=== PATIENT | male | born 1970 | race Caucasian/White ===

== ENCOUNTER 2016-12-29 11:33 | Inpatient (IN) | payer MEDICAID ==
[~2016-12-29] VITALS: Ht 165.1 cm; Wt 82.1 kg
[~2016-12-29 11:33] MED LIST: BACTRIM DS 800/1 TAB PO; CATAPRES0.1 MG PO; CLEOCIN HCL300 MG PO; KEFLEX250 MG/5 M PO; METFORMIN500 MG PO; ZESTRIL30 MG PO
[2016-12-29 12:07] VITALS: BP 135/76
--- NOTE | 2016-12-29 12:15 | NUR ---
46M BIB FAMILY C/O RT ARM PAIN, ACHING, NON-RADIATING, 7/10 X LAST NIGHT; PT STATES HE WAS DRINKING LAST NIGHT, FELL, LANDED ON RIGHT ARM; DENIES LOC AT THIS TIME; HX DM, NON-COMPLIANT W/MEDS. HX: ETOH; PT A&OX4, MUTLIPLE SCABS NOTED TO FACE/RT ARM; BRUISE NOTED TO LEFT ARM; BL RADIAL PULSES PALPABLE, BL UE'S CAP REFILL < 3 SECONDS; NO LOSS OF SENSATION TO BL ARMS AT THIS TIME; PT STATES HAD 5 EPISODES OF DIARRHEA TODAY, BUT DENIES N/V AT THIS TIME; ABDOMEN SOFT, NON-TENDER, ACTIVE BOWEL SOUNDS X 4 QUADRANTS; PT RESTING IN BED W/ HOB ELEVATED AND IN LOWEST POSITION; POSITIONED FOR COMFORT; ER MD MADE AWARE OF STATUS. WILL CONTINUE TO MONITOR.
--- NOTE | 2016-12-29 12:15 | NUR ---
Pt taken to bed 5.
--- NOTE | 2016-12-29 12:16 | NUR ---
Patient being evaluated by physician at bedside.
[2016-12-29] MEDS ORDERED: NACL 0.9% 1,000 ML IV ONE (12:17)
[2016-12-29] MEDS ORDERED: MULTIVITAMIN-12 10 ML, THIAMINE 100 MG, MAGNESIUM SULFATE 50% 2,000 MG, FOLIC ACID 5 MG... IV ONE (12:17)
--- NOTE | 2016-12-29 13:10 | NUR ---
Patient appears to be resting comfortably in bed. Vital Signs within normal limits. Respirations even and unlabored. FAMILY AT BEDSIDE; WILL CONTINUE TO MONITOR.
--- NOTE | 2016-12-29 15:00 | NUR ---
Patient appears to be resting comfortably in bed. Vital Signs within normal limits. Respirations even and unlabored. NO SIGNS OF ACUTE DISTRESS AT THIS TIME; WILL CONTINUE TO MONITOR.
--- NOTE | 2016-12-29 16:01 | NUR ---
Dr. Powers at bedside. Accepting admission.
[2016-12-29] MEDS ORDERED: KETOROLAC 30 MG/ML VIAL IVP PRN (16:15)
[2016-12-29] MEDS ORDERED: MORPHINE SULFATE 2 MG/ML SYR IVP PRN (16:15)
[2016-12-29] MEDS ORDERED: PANTOPRAZOLE 40 MG TABEC PO ONE (16:15)
[2016-12-29] MEDS ORDERED: ACETAMINOPHEN 325 MG SUPP RC PRN (16:15)
[2016-12-29] MEDS ORDERED: DOCUSATE SODIUM 100 MG GELCAP PO PRN (16:15)
[2016-12-29] MEDS: FOLIC ACID 1 MG TAB PO SCH (16:15)
[2016-12-29] MEDS ORDERED: LORazepam 2 MG/ML VIAL IVP PRN (16:15)
[2016-12-29] MEDS: THIAMINE 200 MG/2 ML VIAL IM SCH (16:15)
[2016-12-29] MEDS ORDERED: ONDANSETRON 4 MG/2 ML VIAL IVP PRN (16:15)
--- NOTE | 2016-12-29 16:31 | NUR ---
CALLED [facility] TO GIVE REPORT; RN STATED WILL CALL BACK.
--- NOTE | 2016-12-29 16:41 | NUR ---
Lisandro vallejo in [facility] - 12/29/16 at 1643 by ADINA REPORT GIVEN TO LEANDRO CALABRESE; PT TO HAVE US AT BEDSIDE AT THIS TIME; WILL BRING PT TO FLOOR AFTER US RN ASSIGNED TO PT IS DISCHARGING PT.
--- NOTE | 2016-12-29 16:41 | NUR ---
REPORT GIVEN TO LEANDRO RN; PT TO HAVE US AT BEDSIDE AT THIS TIME; WILL BRING PT TO FLOOR AFTER US RN ASSIGNED TO PT IS DISCHARGING A PT.
--- NOTE | 2016-12-29 16:47 | NUR ---
US AT BEDSIDE; WILL BRING PT TO FLOOR UPON COMPLETION OF US; PT DENIES ACUTE DISTRESS AT THIS TIME; WILL CONTINUE TO FOLLOW.
--- NOTE | 2016-12-29 17:11 | NUR ---
Patient will be admitted to care of DR. PELAYO. Admited to TELEMETRY. Will go to room 121A. Belongings list completed. Report to BHARATI REEVES.
--- NOTE | 2016-12-29 17:15 | NUR ---
RECEIVED PT FROM ER AWAKE, ALERT ORIENTEDX4. WITH DAUGHTER JOSÉ ANTONIO. NO SOB NOTED. DENIES ANY PAIN OR DISCOMFORT AT THIS TIME. PT AMBULATORY BUT UNSTABLE. DENIES ANY DISCOMFORT WITH BLADDER OR BOWEL ELIMINATION. PT HAS RIGHT SCAB ON ELBOW. AND PURPLE DISCOLORATION OF RIGHT ARM. SAFETY PRECAUTION IN PLACE. CALL LIGHT WITHIN REACH.
--- NOTE | 2016-12-29 17:29 | NUR ---
DR. BECERRA MADE AWARE OF LAB VALUE OF PT. K 3.1, NA 123.
[2016-12-29] MEDS: BLOOD GLUCOSE MONITORING 1 DEV DEV FS SCH ×2 (17:30→20:37)
[2016-12-29] MEDS: NACL 0.9% 1,000 ML IV SCH ×2 (17:58→22:31)
[2016-12-29] MEDS: LORazepam 1 MG TAB PO SCH ×2 (18:00→23:49)
--- NOTE | 2016-12-29 18:00 | NUR ---
DR. BECERRA CAME TO SEE PT WITH NEW ORDERS MADE AND CARRIED OUT. PT ON NPO EXCEPT MEDS PER MD ORDER. AWARE THAT PT HAD HIS DINNER.
[2016-12-29] MEDS: INSULIN LISPRO SLIDING SCALE 100 UNITS/ML VIAL SUBQ PRN (18:02)
--- NOTE | 2016-12-29 18:10 | NUR ---
Note yoni in EDM - 12/29/16 at 1914 by MEDCARLOS Patient appears to be resting comfortably in bed. Vital Signs within normal limits. Respirations even and unlabored. NO ACUTE DISTRESS NOTED AT THIS TIME; WILL CONTINUE TO MONITOR.
[2016-12-29 18:42] VITALS: BP 137/77
--- NOTE | 2016-12-29 19:08 | NUR ---
Lisandro vallejo in EDM - 12/29/16 at 1914 by MEDCARLOS IV removed, catheter intact and site benign. Applied folded 4x4 gauze and tape to stop bleeding. PT TOLERATED PROCEDURE WELL.
--- NOTE | 2016-12-29 19:40 | NUR ---
ENDORSED TO NEXT SHIFT FOR CONTINUITY OF CARE. PT ALERT, AWAKE ORIENTED X4. DENIES ANY PAIN OR DISCOMFORT AT THIS TIME. NO SOB. MADE AWARE OF NPO ORDER. PT ON STABLE CONDITION. KEPT CLEAN DRY AND COMFORTABLE, NEEDS ATTENDED.
--- NOTE | 2016-12-29 19:41 | NUR ---
RECEIVED REPORT FROM DAY RN FOR CONTINUITY OF CARE. PATIENT IS A&OX4, DISCUSSED PLAN OF CARE WITH PATIENT AND DAUGHTER AT BESIDE, VERBALIZED UNDERSTANDING. SHIFT ASSESSMENT DONE, VS TAKEN, STABLE. NO S/S OF RESPIRATORY DISTRESS NOTED ON ROOM AIR. PATIENT DENIES PAIN AT THIS TIME. IV TO LT AC 20 GAUGE PATENT AND INFUSING FLUIDS WELL. PT HAS SCABS AND SWELLING NOTED TO RT ARM FROM S/P FALL. SAFETY/ FALL PRECAUTIONS ENFORCED. CALL LIGHT WITHIN REACH. WILL CONTINUE TO MONITOR.
[2016-12-29 20:00] VITALS: BP 138/76
[2016-12-29] MEDS: cloNIDine 0.1 MG TAB PO SCH (20:38)
[2016-12-29] MEDS ORDERED: POTASSIUM CHLORIDE 10 MEQ TABER PO SCH (21:00)
--- NOTE | 2016-12-29 21:00 | NUR ---
SPOKE TO DR. PELAYO REGARDING K LEVEL, AND DIET, WILL FOLLOW OUT ORDERS GIVEN.
--- NOTE | 2016-12-29 21:31 | NUR ---
DUE MEDICATIONS ADMINISTERED, TOLERATED WELL. PATIENT RESTING IN BED, NO S/S OF DISTRESS NOTED.
[2016-12-30] VITALS: BP 129/72
--- NOTE | 2016-12-30 00:02 | NUR ---
PATIENT C/O PAIN IN RIGHT ARM, MEDICATED PER MD ORDER. VS TAKEN, STABLE. CALL LIGHT IN REACH. WILL CONTINUE TO MONITOR.
--- NOTE | 2016-12-30 02:00 | NUR ---
PATIENT IS ASLEEP. NO S/S OF DISTRESS OR DISCOMFORT NOTED. WILL CONTINUE TO MONITOR.
[2016-12-30] MEDS: NACL 0.9% 1,000 ML IV SCH ×4 (03:28→18:11)
[2016-12-30 04:00] VITALS: BP 139/89
--- NOTE | 2016-12-30 04:00 | NUR ---
VS TAKEN, STABLE. PT AMBULATED TO RESTROOM, VOIDED. RETURNED TO BED AND MADE COMFORTABLE. WILL CONTINUE TO MONITOR.
[2016-12-30] MEDS: LORazepam 1 MG TAB PO SCH ×3 (06:11→17:16)
[2016-12-30] MEDS: BLOOD GLUCOSE MONITORING 1 DEV DEV FS SCH ×3 (06:11→16:37)
--- NOTE | 2016-12-30 06:11 | NUR ---
DUE MEDICATIONS ADMINISTERED, TOLERATED WELL. WILL CONTINUE TO MONITOR.
--- NOTE | 2016-12-30 07:16 | NUR ---
ENDORSED PATIENT TO DAY RN FOR CONTINUITY OF CARE, PATIENT IS IN STABLE CONDITION.
--- NOTE | 2016-12-30 07:20 | NUR ---
RECEIVED PT IN BED. WAKE. ALERT ORIENTED X4. NO SOB NOTED. DENIES ANY PAIN OR DISCOMFORT AT THIS TIME. POSITIVE BOWEL SOUNDS NOTED ON FOUR QUADRANTS. PT AMBULATORY WITH ASSISTANCE. SAFETY PRECAUTION IN PLACE. CALL LIGHT WITHIN REACH.
[2016-12-30 08:00] VITALS: BP 151/90
[2016-12-30] MEDS ORDERED: FERROUS SULFATE 325 MG TABEC PO SCH (08:00)
[2016-12-30] MEDS: cloNIDine 0.1 MG TAB PO SCH (08:44)
[2016-12-30] MEDS: FOLIC ACID 1 MG TAB PO SCH (08:45)
[2016-12-30] MEDS: THIAMINE 200 MG/2 ML VIAL IM SCH (08:46)
[2016-12-30] MEDS ORDERED: PANTOPRAZOLE 40 MG TABEC PO SCH (09:00)
[2016-12-30] MEDS ORDERED: metFORMIN 500 MG TAB PO SCH (09:00)
[2016-12-30] MEDS ORDERED: LISINOPRIL 10 MG TAB PO SCH (09:00)
[2016-12-30] MEDS ORDERED: ASCORBIC ACID 500 MG TAB PO SCH (09:00)
--- NOTE | 2016-12-30 09:52 | NUR ---
PATIENT HAS BEEN SCREENED AND CATEGORIZED MODERATE NUTRITION RISK. PATIENT WILL BE SEEN WITHIN 3-5 DAYS OF ADMISSION. 01/01/17-01/03/[address]
[2016-12-30] MEDS ORDERED: POTASSIUM CHLORIDE 10 MEQ TABER PO SCH (11:09)
[2016-12-30] MEDS ORDERED: SODIUM PHOS / POTASSIUM PHOS 1 PKT PDR PO SCH (11:10)
[2016-12-30] MEDS: INSULIN LISPRO SLIDING SCALE 100 UNITS/ML VIAL SUBQ PRN ×2 (11:48→16:42)
[2016-12-30 12:00] VITALS: BP 123/72
--- NOTE | 2016-12-30 12:45 | NUR ---
WOUND CARE EVALUATION NOTES: REASON FOR EVALUATION: MULTIPLE UPPER EXTREMITIES AND FACIAL WOUNDS COMPLETE SKIN ASSESSMENT DONE ON THIS 46 Y/O MALE PATIENT FROM HOME TO [facility], WITH INITIAL DIAGNOSIS OF ALCOHOL WITHDRAWAL AND SEVERE ELECTROLYTE IMBALANCE. ALL ABOVE INFORMATION WAS OBTAINED FROM THE ADMISSION H&P. LABS ARE WBC 8.2, H/H 11.1/33.3, GLUCOSE 137, ALBUMIN 3.3, PT/INR 10.6/1.1 AND PTT 28.6. CURRENT MEDS INCLUDE ATIVAN, ASCORBIC ACID, METFORMIN, INSULIN, MORPHINE AND TORADOL. PATIENT IS AWAKE, ALERT, ABLE TO FOLLWO SIMPLE COMMANDS. SKIN WARM TO TOUCH WNL, TOENAILS ARE YELLOW AND THICKENED, NO EDEMA, WITH FINE HAIR GROWTH AND +2 BILATERAL PEDAL PULSES. URINE AND BOWEL CONTINENT, ABLE TO AMBULATE TO THE RESTROOM CLAIMED. ABLE TO TURN SELF WITH NO ASSISTANCE. INITIAL PLAN OF CARE AND PRESSURE PREVENTIVE MEASURES DISCUSSED, ABLE TO VERBALIZE UNDERSTANDING. INTEGUMENTARY: MULTIPLE ABRASIONS TO FACE, BILATERAL UPPER EXTREMITIES - BLACK-BROWN SCABS RECOMMENDATIONS: -PAINT RIGHT ELBOW WITH BETADINE, COVER WITH GAUZE AND WRAP WITH AIRAM DAILY AND PRN WITH SOILING/DISPLACEMENT --TURN AND REPOSITION PATIENT Q2H TO LEFT AND RIGHT SIDE ONLY TO OFFLOAD SACRALCOCCYX -ASSESS AND MONITOR SKIN CONDITION DURING POSITION CHANGE, PLEASE PAY PARTICULAR ATTENTION TO SACRALCOCCYX, ELBOWS AND HEELS -OFFLOAD BILATERAL HEELS BY PLACING PILLOWS UNDER CALVES AT ALL TIMES, UNLESS OTHERWISE CONTRAINDICATED -KEEP SKIN CLEAN AND DRY AT ALL TIMES. RECOMMENDATIONS DISCUSSED WITH PRIMARY RN AND RESIDENT PHYSICIAN, DR. MARIN NO FOLLOW UP NEEDED AT THIS TIME. PLEASE CONTACT [facility] FOR ANY CONCERNS, QUESTIONS AND CHANGES IN SKIN CONDITION.
--- NOTE | 2016-12-30 12:57 | NUR ---
WOUND CARE NURSE SAM CALABRESE CAME TO SEE PT. PT TRIED TO PEEL SCAB ON RIGHT ELBOW, CAUSING IT TO BLEED. WOUND CARE DONE, COVERED IT WITH KERLIX. INITIAL TREATMENT DONE PER PROTOCOL. PT DENIES ANY PAIN OR DISCOMFORT AT THIS TIME.
[2016-12-30] MEDS ORDERED: LORazepam 2 MG/ML VIAL IVP PRN (14:20)
--- NOTE | 2016-12-30 14:50 | NUR ---
PT PULLED OUT HIS IV. BLEEDING FROM IV SITE ON LEFT AC NOTED. CANNULA INTACT. PT VERBALIZED TO DAUGHTER JOSÉ ANTONIO THAT HE WANTS TO GO HOME. EXPLAINED TO PT THE RISKS OF GOING HOME AGAINST MEDICAL ADVICE BUT PT INSISTED. SHARRI ECHEVARRIA, MADE AWARE. BROUGHT AMA FORM TO PT TO SIGN. PT VERBALIZED THAT HE IS NO LONGER GOING HOME. DAUGHTER OF PT AT BEDSIDE. DR. HARRELL MADE AWARE. PT DENIES ANY PAIN OR DISCOMFORT AT THIS TIME. NO SOB.
[2016-12-30 16:00] VITALS: BP 135/66
--- NOTE | 2016-12-30 16:24 | NUR ---
ELDEST DAUGHTER OF PT CAME. ASKING IF SHE CAN MAKE THE DECISION FOR THE PT. PT IS ALERT ORIENTEDX4 AND ABLE TO MAKE HIS NEEDS KNOWN. DAUGHTER OF PT VERBALIZED THAT PT WAS SEEING THINGS THAT ARE NOT THERE. ASSESSED PT. PT ALERT ORIENTEDX4, ABLE TO MAKE HIS NEEDS KNOWN, AND ABLE TO MAKE DECISIONS FOR HIMSELF. DR. HARRELL MADE AWARE OF DAUGHTER'S CONCERN.
--- NOTE | 2016-12-30 18:55 | NUR ---
PT PULLED OUT IV AGAIN, IV CANNULA INTACT. WANTED TO GO HOME AGAINST MEDICAL ADVICE. DAUGHTER JOSÉ ANTONIO AT BEDSIDE. PT SIGNED AMA FORM. CHARGE NURSE CALLED CLINICAL APPEALS SPECIALIST DR. PINEDA AND MADE AWARE. PT ASSISTED BY DAUGHTER JOSÉ ANTONIO GOING OUT OF THE HOSPITAL.
== END 2016-12-30 18:55 | disposition left against medical advice (07) | DRG 770 ==
LOC: MED 11:33 → MTU 16:33
PROVIDERS: ADMIT Student in an Organized Health Care Education/Training Program; ATTEND Student in an Organized Health Care Education/Training Program
DX: F10.239 Alcohol dependence with withdrawal, unspecified (principal); N17.0 Acute kidney failure with tubular necrosis; G92 Toxic encephalopathy; E44.0 Moderate protein-calorie malnutrition; S09.8XXA Other specified injuries of head, initial encounter; D68.59 Other primary thrombophilia; E11.65 Type 2 diabetes mellitus with hyperglycemia; E87.1 Hypo-osmolality and hyponatremia; G90.9 Disorder of the autonomic nervous system, unspecified; E87.6 Hypokalemia; S01.81XA Laceration without foreign body of other part of head, initial encounter; R74.0 Nonspecific elevation of levels of transaminase and lactic acid dehydrogenase [LDH]; E66.9 Obesity, unspecified; Z53.21 Procedure and treatment not carried out due to patient leaving prior to being seen by health care provider; I10 Essential (primary) hypertension; D64.9 Anemia, unspecified; F10.229 Alcohol dependence with intoxication, unspecified; E80.6 Other disorders of bilirubin metabolism; W18.39XA Other fall on same level, initial encounter; Y93.89 Activity, other specified; Y92.89 Other specified places as the place of occurrence of the external cause; Y99.8 Other external cause status; Z79.899 Other long term (current) drug therapy; Z91.14 Patient's other noncompliance with medication regimen; Z68.30 Body mass index [BMI] 30.0-30.9, adult; Z28.21 Immunization not carried out because of patient refusal

== ENCOUNTER 2017-01-01 18:41 | Emergency (ER) | payer MEDICAID ==
[~2017-01-01] VITALS: Ht 165.1 cm; Wt 78.0 kg
[~2017-01-01 18:41] MED LIST changes: -BACTRIM DS 800/1 TAB PO; -CATAPRES0.1 MG PO; -CLEOCIN HCL300 MG PO; +CLON0.1T42 PO; -KEFLEX250 MG/5 M PO; +LISI30TA6 PO; +METF500T64 PO; -METFORMIN500 MG PO; -ZESTRIL30 MG PO
[2017-01-01 18:52] VITALS: BP 149/88
[2017-01-01] MEDS ORDERED: KETOROLAC 60 MG/2 ML VIAL IM ONE (20:30)
[2017-01-01 21:42] VITALS: BP 143/87
== END 2017-01-01 21:41 | disposition home or self-care (01) ==
LOC: MED 18:41
DX: S50.01XA Contusion of right elbow, initial encounter (principal); S50.02XA Contusion of left elbow, initial encounter; E11.9 Type 2 diabetes mellitus without complications; I10 Essential (primary) hypertension; W19.XXXA Unspecified fall, initial encounter; Y93.89 Activity, other specified; Y92.89 Other specified places as the place of occurrence of the external cause; Y99.8 Other external cause status
CPT/HCPCS: 73080; 90471; 90715; 96372; 99284; J1885; Q0092

== ENCOUNTER 2017-01-05 11:21 | Emergency (ER) | payer MEDICAID ==
[~2017-01-05] VITALS: Ht 167.6 cm; Wt 78.0 kg
[~2017-01-05 11:21] MED LIST changes: +BACTRIM DS 800/1 TAB PO; +CATAPRES0.1 MG PO; +CLEOCIN HCL300 MG PO; -CLON0.1T42 PO; +KEFLEX250 MG/5 M PO; -LISI30TA6 PO; -METF500T64 PO; +METFORMIN500 MG PO; +ZESTRIL30 MG PO
[2017-01-05 11:36] VITALS: BP 151/94
--- NOTE | 2017-01-05 11:40 | NUR ---
Patient to bed 08.
--- NOTE | 2017-01-05 11:50 | NUR ---
PT STATES RIGHT ELBOW ABRASION S/P GLF X10 DAYS AGO---PT C/O WOUND NOT HEALING, LEAKING,PAIN.PT ADMITS LAST ETOH X 10 DAYS AGO--SEROSANGUINEOUS DRAINAGE NOTED FROM WOUND, PINK CLEAN. DENIES N/V/D; SKIN IS PINK/WARM/DRY; AAOX4 WITH EVEN AND STEADY GAIT; LUNGS CLEAR BL; HR EVEN AND REGULAR; PT DENIES ANY FEVER, CP, SOB, OR COUGH AT THIS TIME; PATIENT STATES PAIN OF 0/10 AT THIS TIME; VSS; PATIENT POSITIONED FOR COMFORT; HOB ELEVATED; BEDRAILS UP X2; BED DOWN. ER MD MADE AWARE OF PT STATUS.
[2017-01-05 11:58] VITALS: BP 140/89
--- NOTE | 2017-01-05 11:59 | NUR ---
Patient discharged with v/s stable. Written and verbal after care instructions given and explained. Patient alert, oriented and verbalized understanding of instructions. Ambulatory with steady gait. All questions addressed prior to discharge. ID band removed. Patient advised to follow up with PMD. Rx of NEOSPORIN AND TYLENOL given. Patient educated on indication of medication including possible reaction and side effects. Opportunity to ask questions provided and answered.
== END 2017-01-05 11:59 | disposition home or self-care (01) ==
LOC: MED 11:21
DX: S50.311D Abrasion of right elbow, subsequent encounter (principal); E11.9 Type 2 diabetes mellitus without complications; I10 Essential (primary) hypertension; X58.XXXD Exposure to other specified factors, subsequent encounter

== ENCOUNTER 2018-01-15 11:26 | Emergency (ER) | payer SELFPAY ==
[~2018-01-15] VITALS: Ht 167.6 cm; Wt 81.2 kg
[2018-01-15 11:32] VITALS: BP 143/94
[2018-01-15] MEDS: IBUPROFEN 800 MG TAB PO ONE (11:54)
[2018-01-15 12:17] VITALS: BP 138/81
== END 2018-01-15 12:16 | disposition home or self-care (01) ==
LOC: MED 11:26
DX: G56.02 Carpal tunnel syndrome, left upper limb (principal); E11.9 Type 2 diabetes mellitus without complications; I10 Essential (primary) hypertension
CPT/HCPCS: 99283

== ENCOUNTER 2019-01-19 11:12 | Inpatient (IN) | payer MEDICAID ==
[~2019-01-19] VITALS: Ht 170.2 cm; Wt 88.9 kg
[2019-01-19 11:16] VITALS: BP 150/72
--- NOTE | 2019-01-19 11:23 | NUR ---
PT AMBULATED TO ER BED 04
--- NOTE | 2019-01-19 11:25 | NUR ---
48 Y MALE C/O N/V/D SINCE FRIDAY "AFTER DRINKING A FEW BEERS"; PATIENT STATES HE WAS DRINKING AND NOT EATING. HASNT BEEN ABLE TO KEEP DOWN ANY FOOD. LAST BM TODAY DIARRHEA. BOWEL SOUNDS ACTIVE IN ALL 4 QUADRANTS. ABDOMEN SOFT AND ROUND. PAIN 4/10. AA0X4. NEPALESE SPEAKING, DAUGHTER TRANSLATES. BED IS DOWN, LOCKED, BED RAIL X 1, ERMD TO SEE PT. HX: DIABETES, HTN
--- NOTE | 2019-01-19 11:25 | NUR ---
DR WERNER AT BEDSIDE FOR PT EVALUATION
[2019-01-19] MEDS ORDERED: NACL 0.9% 1,000 ML IV SCH ×2 (11:28→13:41)
[2019-01-19] MEDS ORDERED: PANTOPRAZOLE 40 MG INJ VIAL IVP ONE (11:30)
[2019-01-19] MEDS ORDERED: ONDANSETRON 4 MG/2 ML VIAL IVP ONE (11:30)
--- NOTE | 2019-01-19 11:35 | NUR ---
ASHLEY EMT AT BEDSIDE FOR EKG
--- NOTE | 2019-01-19 11:48 | NUR ---
ACCU CHECK 314, DR WERNER NOTIFIED
[2019-01-19 11:50] LABS: BILIRUBIN,URINE NEGATIVE (NEGATIVE); BLOOD, URINE 3+ (NEGATIVE); COLOR,URINE YELLOW (YELLOW); LEUKOCYTE ESTERASE ,URINE NEGATIVE (NEGATIVE); NITRITE, URINE NEGATIVE (NEGATIVE); UGLUCOSE 3+ (NEGATIVE)
[2019-01-19 11:51] LABS: HEMATOCRIT 41.9 % (36-52); HEMOGLOBIN 14.7 g/dL (12.0-18.0); LYMPHOCYTES # (AUTO) 0.5 K/uL (2.0-11.5); LYMPHOCYTES % (AUTO) 3.1 % (20.5-51.1); MEAN CORPUSCULAR HEMOGLOBIN 30 pg (27-31); MEAN CORPUSCULAR HGB CONC 35 g/dL (33-37); MEAN CORPUSCULAR VOLUME 84.6 fL (80-94); MONOCYTES # (AUTO) 1.4 K/uL (0.8-1.0); MONOCYTES % (AUTO) 8.6 % (1.7-9.3); NEUTROPHILS # (AUTO) 14.7 K/uL (1.8-7.7); NEUTROPHILS % (AUTO) 88.3 % (42.2-75.2); PLATELET COUNT (AUTO) 144 K/uL (140-450); RED BLOOD CELL COUNT(AUTO) 4.95 MIL/uL (4.20-6.10); RED CELL DISTRIBUTION WIDTH 13.9 % (11.6-13.7); WHITE BLOOD COUNT (AUTO) 16.6 K/uL (4.8-10.8)
[2019-01-19 11:56] LABS: APPEARANCE,URINE HAZY (CLEAR)
--- NOTE | 2019-01-19 12:08 | NUR ---
PT STATES HIS NAUSEA HAS DECREASED.
[2019-01-19 12:11] LABS: ALBUMIN 3.9 g/dL (3.4-5.0); CARBON DIOXIDE 25.8 mmol/L (21-32); CREATININE 1.1 mg/dL (0.7-1.3); TOTAL BILIRUBIN 6.4 mg/dL (0.0-1.0)
[2019-01-19 12:36] LABS: WBC,URINE 0-5 /HPF (0-5)
[2019-01-19 12:59] LABS: ANION GAP 17.7 (8-16)
[2019-01-19 13:08] LABS: POTASSIUM 2.5 mmol/L (3.5-5.1)
--- NOTE | 2019-01-19 13:09 | NUR ---
na 108 k 2.5
[2019-01-19] MEDS ORDERED: KCL 20 MEQ/WATER INJ PREMIX 200 ML IV ONE (13:25)
[2019-01-19] MEDS ORDERED: NACL 3% 500 ML IV ONE (13:25)
--- NOTE | 2019-01-19 13:39 | NUR ---
NACL 3% 500 ML STARTED IN THE L AC AND POTASSIUM STARTED IN THE R AC
[2019-01-19] MEDS ORDERED: ONDANSETRON 4 MG/2 ML VIAL IVP PRN (13:45)
[2019-01-19] MEDS ORDERED: ACETAMINOPHEN 325 MG TAB PO PRN (13:45)
--- NOTE | 2019-01-19 13:54 | NUR ---
XRAY AT BEDSIDE
--- NOTE | 2019-01-19 13:59 | NUR ---
VSS AT THIS TIME. PT AA0X4. DAUGHTER BEDSIDE
--- NOTE | 2019-01-19 14:05 | NUR ---
PT AMB TO RESTROOM WITH STEADY GAIT
--- NOTE | 2019-01-19 14:20 | NUR ---
ARRIVED ON THE UNIT WITH 2 ER NURSES. PT IS AWAKE AND ORIENTED. AMBULATED FROM GURNEY TO BED. PT HAS STEADY GAIT. PT HAS 2 IV SITES L AC 20G AND R AC 18G. INFUSING POTASSIUM PREMIX AT 50ML/HR AND NACL 3% AT 25ML/HR. PT TOLERATING WELL. PT IS ON ROOM AIR. SKIN INTACT. VITAL SIGNS WITHIN NORMAL. MRSA DONE. DENIES ANY PAIN OR NAUSEA. WILL CONTINUE TO MONITOR PT.
--- NOTE | 2019-01-19 14:20 | NUR ---
Patient will be admitted to care of DR PINEDA. Admited to TELE. Will go to room 106B. Belongings list completed. Report to FRANK CALABRESE. PT ADMITTED WITH POTASSIUM AND NACL 3% RUNNING.
[2019-01-19] MEDS ORDERED: METF1000 PO (14:38)
--- NOTE | 2019-01-19 14:42 | NUR ---
LAB CALLED WITH CRITICAL: LACTIC ACID 4.4. WILL NOTIFY
[2019-01-19 14:46] LABS: BARBITURATE, URINE NEG. ng/ml (NEG <=200); BENZODIAZEPINE, URINE NEG. ng/mL (NEG <=200); CANNABINOID, URINE NEG. ng/mL (NEG <=50); COCAINE, URINE NEG. ng/mL (NEG <=300); OPIATE, URINE NEG. ng/mL (NEG <=2000); PHENCYCLIDINE SCREEN,URINE NEG. ng/mL (NEG <=25)
[2019-01-19 14:48] LABS: FREE T4 (FREE THYROXINE) 1.05 ng/dL (0.76-1.46); MAGNESIUM 1.7 mg/dL (1.8-2.4); PHOSPHORUS 2.9 mg/dL (2.5-4.9); THYROID STIMULATING HORMONE 0.85 uIU/mL (0.34-3.74)
[2019-01-19 15:11] VITALS: BP 137/71
[2019-01-19] MEDS ORDERED: DEXTROSE 50% 50 ML SYR IVP PRN (15:15)
[2019-01-19] MEDS ORDERED: LORazepam 2 MG/ML VIAL IVP PRN (15:15)
[2019-01-19] MEDS ORDERED: METOCLOPRAMIDE 10 MG/2 ML INJ VIAL IVP PRN (15:15)
[2019-01-19 15:16] LABS: ANION GAP 11.1 (8-16); CARBON DIOXIDE 26.3 mmol/L (21-32); CREATININE 0.8 mg/dL (0.7-1.3)
[2019-01-19 15:30] LABS: POTASSIUM 2.4 mmol/L (3.5-5.1)
[2019-01-19 16:00] VITALS: BP 134/78
[2019-01-19] MEDS ORDERED: POTASSIUM CHLORIDE 40 MEQ, LIDOCAINE MPF 1% - 5 mL VIAL 25 MG in NACL 0.9% 250 ML IV SCH ×2 (16:00→19:00)
[2019-01-19] MEDS ORDERED: MAG SULF 2000 MG/WATER PREMIX 50 ML IV SCH (16:00)
[2019-01-19] MEDS: BLOOD GLUCOSE MONITORING 1 DEV DEV FS SCH ×2 (16:38→20:53)
[2019-01-19] MEDS: LORazepam 1 MG TAB PO SCH ×2 (17:10→23:49)
[2019-01-19] MEDS: INSULIN LISPRO SLIDING SCALE 100 UNITS/ML VIAL SUBQ PRN ×2 (17:47→21:04)
[2019-01-19 18:39] LABS: ANION GAP 11.1 (8-16); CARBON DIOXIDE 27.3 mmol/L (21-32); CREATININE 0.9 mg/dL (0.7-1.3)
[2019-01-19 18:43] LABS: POTASSIUM 2.4 mmol/L (3.5-5.1)
--- NOTE | 2019-01-19 19:24 | NUR ---
ENDORSED PT TO THE ANIMAL TECH NURSE. PT IS IN STABLE CONDITION.
--- NOTE | 2019-01-19 19:25 | NUR ---
RECEIVED REPORT FROM DAY SHIFT NURSE FRANK-RN AT BEDSIDE. PT RESTING IN BED WITH FAMILY AT BEDSIDE. AOX4-INDONESIAN SPEAKING, ON ROOM AIR WITH RIGHT AC #18G RUNNING NS @75ML/HR AND LEFT AC #20G RUNNING KCL @68ML/HR. DISCUSSED PLAN OF CARE AND PT VERBALIZED UNDERSTANDING. NO S/S OF RESPIRATORY DISTRESS OR DISCOMFORT NOTED AT THIS TIME. BED IN LOWEST POSITION, BED BREAKS ON, BOTH SIDE RAILS UP. BEDSIDE TABLE AND CALL LIGHT ARE WITHIN REACH. WILL CONTINUE TO MONITOR.
[2019-01-19 20:00] VITALS: BP 112/63
[2019-01-19] MEDS ORDERED: POTASSIUM CHLORIDE 10 MEQ TABER PO ONE (20:00)
[2019-01-19] MEDS ORDERED: POTASSIUM CHLORIDE 40 MEQ, LIDOCAINE MPF 1% - 5 mL VIAL 25 MG in NACL 0.9% 250 ML IV ONE (20:00)
--- NOTE | 2019-01-19 20:00 | NUR ---
VITAL SIGNS TAKEN AND TOLERATED WELL. BLOOD GLUCOSE 164- WILL ADMINISTER INSULIN COVERAGE. NO S/S OF RESPIRATORY DISTRESS OR DISCOMFORT NOTED AT THIS TIME. WILL CONTINUE TO MONITOR.
[2019-01-19 20:11] LABS: ANION GAP 9.3 (8-16); CARBON DIOXIDE 29.1 mmol/L (21-32); CREATININE 0.9 mg/dL (0.7-1.3)
[2019-01-19 20:13] LABS: POTASSIUM 2.4 mmol/L (3.5-5.1)
--- NOTE | 2019-01-19 20:17 | NUR ---
CRITICAL LAB VALUE NA 117, K 2.4- SPOKE WITH DR. WRIGHT AND THERE ARE NO CHANGE IN ORDERS. SPOKE TO HER ABOUT KCL IV SCHEDULED FOR 1999 WHEN KCL IV IS STILL RUNNING FROM 1810- ORDERS ARE TO WAIT AND SEE 0000 SCHEDULED BLOOD DRAW AND SEE RESULTS BEFORE HANGING KCL IV SCHEDULED FOR 1999. CHARGE NURSE CHRIST-HBARATI AWARE.
--- NOTE | 2019-01-19 20:25 | NUR ---
CRITICAL LAB VALUE LACTIC ACID 2.2- SPOKE WITH DR. WRIGHT AND THERE ARE NO CHANGE IN ORDERS.
--- NOTE | 2019-01-19 20:49 | NUR ---
CRITICAL LAB VALUE TROPONIN 0.114- SPOKE WITH DR. WRIGHT AND THERE ARE NO CHANGE IN ORDERS. GIVE HEPARIN SUBQ ORDERED.
[2019-01-19] MEDS: DOCUSATE SODIUM 100 MG GELCAP PO SCH (20:52)
--- NOTE | 2019-01-19 21:05 | NUR ---
SCHEDULED MEDICATIONS GIVEN AND TOLERATED WELL. NO S/S OF RESPIRATORY DISTRESS OR DISCOMFORT NOTED AT THIS TIME. WILL CONTINUE TO MONITOR.
--- NOTE | 2019-01-19 21:06 | NUR ---
INSULIN COVERAGE GIVEN AND TOLERATED WELL. NO S/S OF RESPIRATORY DISTRESS OR DISCOMFORT NOTED AT THIS TIME. WILL CONTINUE TO MONITOR.
--- NOTE | 2019-01-19 23:00 | NUR ---
PT RESTING IN BED. NO S/S OF RESPIRATORY DISTRESS OR DISCOMFORT NOTED AT THIS TIME. WILL CONTINUE TO MONITOR.
[2019-01-20] VITALS: BP 130/76
--- NOTE | 2019-01-20 | NUR ---
VITAL SIGNS TAKEN AND TOLERATED WELL. SCHEDULED MEDICATION ATIVAN GIVEN AND TOLERATED WELL. NO S/S OF RESPIRATORY DISTRESS OR DISCOMFORT NOTED AT THIS TIME. WILL CONTINUE TO MONITOR.
[2019-01-20 00:51] LABS: ANION GAP 10.1 (8-16); CARBON DIOXIDE 26.9 mmol/L (21-32); CREATININE 0.9 mg/dL (0.7-1.3)
--- NOTE | 2019-01-20 02:00 | NUR ---
PT SLEEPING AT THIS TIME. NO S/S OF RESPIRATORY DISTRESS OR DISCOMFORT NOTED AT THIS TIME. WILL CONTINUE TO MONITOR.
[2019-01-20] MEDS ORDERED: LIDOCAINE MPF 1% - 5 mL VIAL 0 ML ONE ×2 (02:06→13:05)
[2019-01-20] MEDS ORDERED: POTASSIUM CHL 20 MEQ/NACL 0.9% 1,000 ML IV SCH (02:20)
--- NOTE | 2019-01-20 02:30 | NUR ---
KCL SCHEDULED 1999 WAS NO LONGER GIVEN DUE TO NOT AVAILABLE AND UNABLE TO PREPARE WITHOUT PHARMACY PER HS KEN AND CHARGE NURSE CHRIST-RN. SPOKE WITH DR. AVERY AND NEW ORDER GIVEN OF NACL/KCL 1,000ML BAG TO INFUSE @68ML/HR. PT TOLERATING WELL. NO S/S OF RESPIRATORY DISTRESS OR DISCOMFORT NOTED AT THIS TIME. WILL CONTINUE TO MONITOR.
--- NOTE | 2019-01-20 02:50 | NUR ---
EDIT NACL/KCL ORDER TO RUN @ 30ML/HR AND TO STOP IVF NS. NO S/S OF RESPIRATORY DISTRESS OR DISCOMFORT NOTED AT THIS TIME. WILL CONTINUE TO MONITOR.
[2019-01-20 04:00] VITALS: BP 119/71
--- NOTE | 2019-01-20 04:00 | NUR ---
VITAL SIGNS TAKEN AND TOLERATED WELL. NO S/S OF RESPIRATORY DISTRESS OR DISCOMFORT NOTED AT THIS TIME. WILL CONTINUE TO MONITOR.
[2019-01-20 04:58] LABS: ANION GAP 8.3 (8-16); CARBON DIOXIDE 28.4 mmol/L (21-32); CREATININE 0.9 mg/dL (0.7-1.3)
[2019-01-20 05:13] LABS: POTASSIUM 2.7 mmol/L (3.5-5.1)
--- NOTE | 2019-01-20 05:14 | NUR ---
CRITICAL LAB VALUE K 2.7- SPOKE WITH DR. WRIGHT AND DM IS TO PLACE ORDERS FOR K ORAL SUPPLEMENT.
[2019-01-20 05:46] LABS: HEMATOCRIT 37.3 % (36-52); HEMOGLOBIN 13.5 g/dL (12.0-18.0); MEAN CORPUSCULAR HEMOGLOBIN 31 pg (27-31); MEAN CORPUSCULAR HGB CONC 36 g/dL (33-37); MEAN CORPUSCULAR VOLUME 84.6 fL (80-94); PLATELET COUNT (AUTO) 121 K/uL (140-450); RED BLOOD CELL COUNT(AUTO) 4.41 MIL/uL (4.20-6.10); RED CELL DISTRIBUTION WIDTH 13.1 % (11.6-13.7); WHITE BLOOD COUNT (AUTO) 9.7 K/uL (4.8-10.8)
[2019-01-20] MEDS: LORazepam 1 MG TAB PO SCH ×4 (05:54→20:27)
--- NOTE | 2019-01-20 05:55 | NUR ---
SCHEDULED MEDICATIONS GIVEN AND TOLERATED WELL. NO S/S OF RESPIRATORY DISTRESS OR DISCOMFORT NOTED AT THIS TIME. WILL CONTINUE TO MONITOR.
[2019-01-20] MEDS: BLOOD GLUCOSE MONITORING 1 DEV DEV FS SCH ×4 (05:58→20:26)
[2019-01-20] MEDS ORDERED: POTASSIUM CHLORIDE 10 MEQ TABER PO SCH ×2 (06:00→12:45)
--- NOTE | 2019-01-20 06:00 | NUR ---
BLOOD GLUCOSE 156- WILL ADMINISTER INSULIN COVERAGE.
[2019-01-20] MEDS: INSULIN LISPRO SLIDING SCALE 100 UNITS/ML VIAL SUBQ PRN ×4 (06:22→20:30)
--- NOTE | 2019-01-20 06:22 | NUR ---
INSULIN COVERAGE GIVEN AND TOLERATED WELL. NO S/S OF RESPIRATORY DISTRESS OR DISCOMFORT NOTED AT THIS TIME. WILL CONTINUE TO MONITOR.
[2019-01-20 06:30] LABS: MAGNESIUM 2.4 mg/dL (1.8-2.4)
[2019-01-20 06:32] LABS: CHOL/HDL RATIO 1.9 (1-4.5)
--- NOTE | 2019-01-20 07:15 | NUR ---
RECEIVED BED SIDE REPORT FROM DIGITAL ENGINEER RN. PT SLEEPING COMFORTABLY IN BED IN NO DISTRESS. R AC 18G WITH IV NS FLUIDS STOPPED. L AC 20G RUNNING K RIDER AT 30CC/HR RUNNING WELL. SKIN INTACT. LUNG SOUNDS CLEAR , HEART SOUNDS S1 S2 PRESENT. CALL LIGHT WITHIN REACH
[2019-01-20 08:00] VITALS: BP 132/84
--- NOTE | 2019-01-20 08:07 | NUR ---
PATIENT HAS BEEN SCREENED AND CATEGORIZED HIGH NUTRITION RISK. PATIENT WILL BE SEEN WITHIN 1-2 DAYS OF ADMISSION. 01/20/19-01/21/[address]
[2019-01-20 08:18] LABS: MONOCYTES % (MANUAL) 9 % (5-12)
[2019-01-20 08:20] LABS: LYMPHOCYTES % (MANUAL) 10 % (20-46)
[2019-01-20] MEDS: MULTIVITAMIN 1 TAB PO SCH (08:27)
[2019-01-20] MEDS: FOLIC ACID 1 MG TAB PO SCH (08:28)
[2019-01-20] MEDS: LISINOPRIL 5 MG TAB PO SCH (08:28)
[2019-01-20] MEDS: DOCUSATE SODIUM 100 MG GELCAP PO SCH ×2 (08:28→20:34)
[2019-01-20] MEDS: THIAMINE 100 MG TAB PO SCH (08:28)
[2019-01-20 08:37] LABS: ANION GAP 7.3 (8-16); CARBON DIOXIDE 29.6 mmol/L (21-32)
[2019-01-20 08:40] LABS: ALBUMIN 3.1 g/dL (3.4-5.0); BILIRUBIN,DIRECT 0.8 mg/dL (0.0-0.3); TOTAL BILIRUBIN 3.1 mg/dL (0.0-1.0)
[2019-01-20 08:43] LABS: POTASSIUM 2.9 mmol/L (3.5-5.1)
[2019-01-20] MEDS: DEXTROSE 5% 1,000 ML IV SCH ×2 (11:03→20:25)
--- NOTE | 2019-01-20 11:47 | NUR ---
SPOKE TO PATIENT HIMSELF AND DAUGHTER LIZBETH AT BEDSIDE. BOTH PATIENT AND DAUGHTER ABLE TO UNDERSTAND AND SPEAK [place]. PER PATIENT'S DAUGHTER, PATIENT IS INDEPENDENT AT HOME WITH ADL'S. PATIENT DRIVES HIMSELF. NO DME'S USE AT HOME. HE NORMALLY GOES TO [facility] [employer] [facility], PHONE NUMBER . DAUGHTER LIZBETH IS THE ONE CALLING FOR APPOINT. HE ALWAYS GO TO [facility] CLOSE TO [facility]. PER PATIENT HE DOES NOT HAVE ANY CONCERNS AT THIS TIME. HE TAKES METFORMIN AT HOME AND SOME BP MEDS, DAUGHTER COULD NOT REMEMBER THE EXACT NAME BUT IS WILLING TO BRING THE CONTAINER. I TOLD HER TO GIVE IT TO THE NURSE SO PATIENT CAN CONTINUE TAKING IT IF NEEDED. RECOMMENDED TO SPEAK TO ASSEMBLER BICYCLE FOR DIET TEACHING, BOTH ARE AGREEABLE. ASSEMBLER BICYCLE MADE AWARE.
[2019-01-20] MEDS ORDERED: POTASSIUM CHLORIDE 40 MEQ, LIDOCAINE MPF 1% - 5 mL VIAL 25 MG in NACL 0.9% 250 ML IV ONE (12:30)
[2019-01-20 13:12] LABS: ANION GAP 11.5 (8-16); CARBON DIOXIDE 26.5 mmol/L (21-32); CREATININE 1.2 mg/dL (0.7-1.3)
--- NOTE | 2019-01-20 13:57 | NUR ---
GAVE PT K RIDER RUNNING 68ML/HR ON L AC RUNNING WELL. R AC RUNNING D5 AT 100ML/HR.
[2019-01-20 14:15] VITALS: BP 111/66
--- NOTE | 2019-01-20 14:34 | NUR ---
01/20/19 RD INITIAL ASSESSMENT COMPLETED PLEASE REFER TO NUTRITION ASSESSMENT UNDER CARE ACTIVITY FOR ESTIMATED NUTRITIONAL NEEDS. 1. CONTINUE CCHO 60 GM DIET TOLERATED 2. RD PROVIDED NUTRITION EDUCATION FOR SOBRIETY AND LIVER CIRRHOSIS 3. RD TO FOLLOW-UP 3-5 DAYS, MODERATE RISK ANIYAH LOPEZ, RD
[2019-01-20] MEDS: HYDROcodone/APAP 7.5/325 MG 1 TAB PO PRN ×2 (15:56→23:41)
--- NOTE | 2019-01-20 16:02 | NUR ---
PT COMPLAINED OF 8/10 LOWER ABDOMEN PAIN PRESSURE LIKE. WILL GIVE NORCO PER MD ORDER
[2019-01-20 18:21] LABS: ANION GAP 9.3 (8-16); CARBON DIOXIDE 26.1 mmol/L (21-32); CREATININE 1.2 mg/dL (0.7-1.3); POTASSIUM 3.4 mmol/L (3.5-5.1)
--- NOTE | 2019-01-20 19:21 | NUR ---
GAVE BED SIDE REPORT TO TOP LOADER RN. PT IN STABLE CONDITION
--- NOTE | 2019-01-20 19:22 | NUR ---
Received endorsement from AM shift RN; patient is A/Ox4, able to make needs known, Malay speaking only, on bedrest. Patient is talking with family; introduced self, updated board. No SOB or distress noted, on room air. IV site notes on right antecubital, 18 gauge, running IVF at 100mL/hr., and left antecubital, 20 gauge, saline locked. Skin intact. Bed in the lowest position, call light within reach. Initial assessment done. Will continue to monitor.
[2019-01-20 19:53] VITALS: BP 104/63
--- NOTE | 2019-01-20 20:05 | NUR ---
Vitals taken; no distress noted.
--- NOTE | 2019-01-20 20:45 | NUR ---
Due meds given, tolerated well.
--- NOTE | 2019-01-20 21:16 | NUR ---
Dr. Pleitez at bedside at this time; advised patient to halt consumption of alcohol due to liver damage. Daughter also at bedside.
--- NOTE | 2019-01-20 23:02 | NUR ---
Checks made; no distress noted.
[2019-01-21] VITALS: BP 115/62
--- NOTE | 2019-01-21 00:10 | NUR ---
Vitals taken; patient asleep, visible chest rise and fall noted.
[2019-01-21 00:50] LABS: ANION GAP 12.2 (8-16); CARBON DIOXIDE 23.2 mmol/L (21-32); CREATININE 1.2 mg/dL (0.7-1.3); POTASSIUM 3.4 mmol/L (3.5-5.1)
--- NOTE | 2019-01-21 02:20 | NUR ---
Frequent checks made; patient asleep, eyes closed, visible chest rise and fall noted. Patient sleeping on right lateral side.
[2019-01-21 04:00] VITALS: BP 110/66
--- NOTE | 2019-01-21 04:50 | NUR ---
Vitals taken, no distress noted.
[2019-01-21] MEDS: LORazepam 1 MG TAB PO SCH ×3 (05:13→21:05)
[2019-01-21] MEDS: DEXTROSE 5% 1,000 ML IV SCH (05:13)
[2019-01-21] MEDS: BLOOD GLUCOSE MONITORING 1 DEV DEV FS SCH ×4 (06:13→21:04)
[2019-01-21] MEDS: INSULIN LISPRO SLIDING SCALE 100 UNITS/ML VIAL SUBQ PRN ×4 (06:16→21:28)
[2019-01-21 07:01] LABS: BASOPHILS % (AUTO) 0.2 % (0.0-2.0); EOSINOPHILS # (AUTO) 0.1 K/uL (0-0.4); EOSINOPHILS % (AUTO) 1.6 % (0.0-4.0); HEMATOCRIT 36.5 % (36-52); HEMOGLOBIN 12.5 g/dL (12.0-18.0); LYMPHOCYTES # (AUTO) 1.7 K/uL (2.0-11.5); LYMPHOCYTES % (AUTO) 26.5 % (20.5-51.1); MEAN CORPUSCULAR HEMOGLOBIN 30 pg (27-31); MEAN CORPUSCULAR HGB CONC 34 g/dL (33-37); MEAN CORPUSCULAR VOLUME 88.2 fL (80-94); MONOCYTES # (AUTO) 1.1 K/uL (0.8-1.0); MONOCYTES % (AUTO) 16.2 % (1.7-9.3); NEUTROPHILS # (AUTO) 3.6 K/uL (1.8-7.7); NEUTROPHILS % (AUTO) 55.5 % (42.2-75.2); RED BLOOD CELL COUNT(AUTO) 4.14 MIL/uL (4.20-6.10); RED CELL DISTRIBUTION WIDTH 13.6 % (11.6-13.7); WHITE BLOOD COUNT (AUTO) 6.6 K/uL (4.8-10.8)
--- NOTE | 2019-01-21 07:10 | NUR ---
Endorsed patient to AM shift RN for continuity of care; patient in stable condition.
--- NOTE | 2019-01-21 07:10 | NUR ---
RECEIVED PT REPORT FROM FIRE SPRINKLER INSTALLER NURSE, PT IS AWAKE AND ALERT, NO S/S OF ACUTE DISTRESS NOTED, NO SOB OR C/O PAIN. PT IS ON ROOM AIR, SKIN INTACT. TWO IV SITES NOTED R AC 18 G, AND L AC 20 G. INFUSING D5 100 ML/HR. PT IS ON STANDARD ISOLATION, NO FALL RISK. CALL LIGHT IS WITHIN REACH. WILL CONTINUE TO MONITOR.
[2019-01-21 07:13] LABS: MAGNESIUM 1.9 mg/dL (1.8-2.4); PHOSPHORUS 2.3 mg/dL (2.5-4.9)
[2019-01-21 07:38] LABS: PLATELET COUNT (AUTO) 98 K/uL (140-450)
[2019-01-21 08:00] VITALS: BP 140/79
--- NOTE | 2019-01-21 08:22 | NUR ---
DR MCMILLAN NOTIFIED OF PT'S NA 128 AND K 3.0
[2019-01-21] MEDS: MULTIVITAMIN 1 TAB PO SCH (09:37)
[2019-01-21] MEDS: LISINOPRIL 5 MG TAB PO SCH (09:37)
[2019-01-21] MEDS: DOCUSATE SODIUM 100 MG GELCAP PO SCH ×2 (09:37→21:05)
[2019-01-21] MEDS: THIAMINE 100 MG TAB PO SCH (09:37)
[2019-01-21] MEDS: FOLIC ACID 1 MG TAB PO SCH (09:37)
--- NOTE | 2019-01-21 09:45 | NUR ---
SCHEDULED AM MEDS ADMINISTERED, HELD THE SUBQ HEPARIN DUE TO LOW PLATELETS (98)
[2019-01-21] MEDS: KCL 20 MEQ/WATER INJ PREMIX 200 ML IV SCH ×2 (10:44→14:17)
[2019-01-21] MEDS: NACL 0.9% 1,000 ML IV SCH ×2 (10:44→23:10)
--- NOTE | 2019-01-21 10:50 | NUR ---
FIRST BAG OF RAISA GAYTAN FOR PT'S POTASSIUM OF 3.0
[2019-01-21 12:00] VITALS: BP 145/91
[2019-01-21] MEDS: SODIUM PHOS / POTASSIUM PHOS 1 PKT PDR PO SCH ×2 (12:28→17:33)
--- NOTE | 2019-01-21 12:47 | NUR ---
PT ASKED FOR CHICKEN SANDWICH FOR LUNCH INSTEAD OF HIS TRAY MEAL. ALSO, PT'S R AC IV DISLODGED AND CAME OUT. CURRENTLY USING HIS L AC 20 G IV FOR POTASSIUM INFUSION.
--- NOTE | 2019-01-21 14:24 | NUR ---
SECOND BAG OF K-RIDER IS HUNG AND INFUSING. L AC IV IS PATENT AND INTACT. PT'S RELATIVE IS VISITING AT BEDSIDE.
[2019-01-21 14:46] LABS: ANION GAP 9.8 (8-16); CARBON DIOXIDE 25.5 mmol/L (21-32); CREATININE 0.8 mg/dL (0.7-1.3); POTASSIUM 3.3 mmol/L (3.5-5.1)
[2019-01-21] MEDS ORDERED: POTASSIUM CHLORIDE 10 MEQ TABER PO SCH (15:15)
[2019-01-21] MEDS ORDERED: SODIUM CHLORIDE 1 GM TAB PO SCH (15:15)
[2019-01-21 16:00] VITALS: BP 133/82
--- NOTE | 2019-01-21 18:00 | NUR ---
PT'S FAMILY VISITING AT BEDSIDE, PT EATING DINNER AT THIS TIME.
[2019-01-21 18:45] LABS: ANION GAP 11.2 (8-16); CARBON DIOXIDE 24.9 mmol/L (21-32); CREATININE 0.9 mg/dL (0.7-1.3); POTASSIUM 4.1 mmol/L (3.5-5.1)
--- NOTE | 2019-01-21 19:19 | NUR ---
PT ENDORSED TO ASSISTANT PROFESSOR OF EDUCATION IN STABLE CONDITION.
--- NOTE | 2019-01-21 19:20 | NUR ---
RECEIVED PT REPORT FROM DAY SHIFT NURSE, PT IS STABLE CONDITION, NO S/S OF ACUTE DISTRESS NOTED, NO SOB NOTED ON RA. DENIED PAIN. SKIN INTACT. IV SITE ON L AC 20 G, PATENT AND INTACT. BED IN LOW POSITION, CALL LIGHT IS WITHIN REACH. WILL CONTINUE TO MONITOR.
[2019-01-21 20:00] VITALS: BP 132/76
--- NOTE | 2019-01-21 21:10 | NUR ---
GIVEN SCHEDULE MEDS. PT TOLERATED WELL. BS CHECK, 232, INSULIN WILL BE ADMINISTERED.
--- NOTE | 2019-01-21 23:55 | NUR ---
VS CHECKED. WITHIN NORMAL RANGE. PT SLEEPING IN BED. NO S/S OF ANY ACUTE DISTRESS. WILL CONTINUE TO MONITOR.
[2019-01-22] VITALS: BP 124/69
--- NOTE | 2019-01-22 02:15 | NUR ---
PT SLEEPING COMFORTABLY. BREATHING EVEN AND UNLABORED. BED IN LOW POSITION, CALL LIGHT WITHIN REACH.
[2019-01-22 04:00] VITALS: BP 143/84
--- NOTE | 2019-01-22 04:01 | NUR ---
VS CHECKED. WITHIN PT'S BASELINE. WILL CONTINUE TO MONITOR.
--- NOTE | 2019-01-22 05:15 | NUR ---
PT SLEEPING IN BED. RESPIRATION EVEN AND UNLABORED. NO ACUTE DISTRESS NOTED.
[2019-01-22] MEDS: LORazepam 1 MG TAB PO SCH ×2 (05:45→13:43)
[2019-01-22] MEDS: BLOOD GLUCOSE MONITORING 1 DEV DEV FS SCH ×2 (05:46→12:03)
[2019-01-22] MEDS: SODIUM PHOS / POTASSIUM PHOS 1 PKT PDR PO SCH (05:46)
[2019-01-22] MEDS: INSULIN LISPRO SLIDING SCALE 100 UNITS/ML VIAL SUBQ PRN ×2 (06:24→12:19)
--- NOTE | 2019-01-22 07:15 | NUR ---
ENDORSED PT TO DAY SHIFT NURSE. PT IN STABLE CONDITION.
--- NOTE | 2019-01-22 07:20 | NUR ---
RECEIVED HAND OFF REPORT FROM SAMPLE STITCHER NURSE, PT IS STABLE AND IN NO APPARENT DISTRESS. IV FLUID INFUSING. IV SITE IS PATENT AND HAS NO SIGNS OF INFLAMMATION OR INFILTRATION. ALL SAFETY MEASURES ARE IN PLACE WILL CONTINUE TO MONITOR.
[2019-01-22 07:38] LABS: BASOPHILS % (AUTO) 0.4 % (0.0-2.0); EOSINOPHILS # (AUTO) 0.2 K/uL (0-0.4); EOSINOPHILS % (AUTO) 3.3 % (0.0-4.0); HEMATOCRIT 34.7 % (36-52); HEMOGLOBIN 12.1 g/dL (12.0-18.0); LYMPHOCYTES # (AUTO) 1.5 K/uL (2.0-11.5); LYMPHOCYTES % (AUTO) 20.6 % (20.5-51.1); MAGNESIUM 1.6 mg/dL (1.8-2.4); MEAN CORPUSCULAR HEMOGLOBIN 31 pg (27-31); MEAN CORPUSCULAR HGB CONC 35 g/dL (33-37); MEAN CORPUSCULAR VOLUME 87.6 fL (80-94); MONOCYTES # (AUTO) 1.1 K/uL (0.8-1.0); NEUTROPHILS # (AUTO) 4.5 K/uL (1.8-7.7); NEUTROPHILS % (AUTO) 60.7 % (42.2-75.2); PHOSPHORUS 2.5 mg/dL (2.5-4.9); PLATELET COUNT (AUTO) 121 K/uL (140-450); RED BLOOD CELL COUNT(AUTO) 3.96 MIL/uL (4.20-6.10); RED CELL DISTRIBUTION WIDTH 13.3 % (11.6-13.7); WHITE BLOOD COUNT (AUTO) 7.4 K/uL (4.8-10.8)
[2019-01-22 07:39] LABS: ANION GAP 9.7 (8-16); CARBON DIOXIDE 26.7 mmol/L (21-32); CREATININE 0.8 mg/dL (0.7-1.3); POTASSIUM 3.4 mmol/L (3.5-5.1)
[2019-01-22 08:00] VITALS: BP 149/86
[2019-01-22] MEDS ORDERED: GLIP5TAB13 PO (08:47)
[2019-01-22] MEDS ORDERED: LISINOPRIL 5 MG TAB PO SCH (09:00)
[2019-01-22] MEDS ORDERED: POTASSIUM CHLORIDE 10 MEQ TABER PO SCH (09:00)
[2019-01-22] MEDS ORDERED: MAGNESIUM OXIDE 400 MG TAB PO SCH (09:00)
--- NOTE | 2019-01-22 09:15 | NUR ---
HEPARIN HELD PLT LEVELS BELOW 150
[2019-01-22] MEDS: DOCUSATE SODIUM 100 MG GELCAP PO SCH (09:40)
[2019-01-22] MEDS: FOLIC ACID 1 MG TAB PO SCH (09:41)
[2019-01-22] MEDS: THIAMINE 100 MG TAB PO SCH (09:41)
[2019-01-22] MEDS: MULTIVITAMIN 1 TAB PO SCH (09:42)
[2019-01-22 12:00] VITALS: BP 145/84
[2019-01-22] MEDS: NACL 0.9% 1,000 ML IV SCH (12:30)
--- NOTE | 2019-01-22 12:30 | NUR ---
FINGERSTICK GLUCOSE 230 ADMINISTERED 6 UNITS HUMALOG PER SLIDING SCALE. PT IS STABLE AND IN NO APPARENT DISTRESS. FAMILY MEMBERS ARE AT BEDSIDE ALL SAFETY MEASURES ARE IN PLACE WILL CONTINUE TO MONITOR,
--- NOTE | 2019-01-22 13:05 | NUR ---
FREQUENT ROUNDING PT IS AWAKE IN BED PT IS STABLE AND IN NO APPARENT DISTRESS. ALL SAFETY MEASURES ARE IN PLACE WILL CONTINUE TO MONITOR.
[2019-01-22 13:20] VITALS: BP 149/86
--- NOTE | 2019-01-22 14:00 | NUR ---
PT ASKED ABOUT SICK FROM WORK NOTE THAT HE SPOKE WITH DR. MCMILLAN ABOUT. INFORMED PT I WOULD LOOK INTO IT.
--- NOTE | 2019-01-22 14:05 | NUR ---
SPOKE WITH DR. MCMILLAN AND HE WROTE THE SICK NOTE FROM WORK AND GAVE IT TO THE PATIENT.
--- NOTE | 2019-01-22 14:15 | NUR ---
REVIEWED PT DISCHARGE INFORMATION. PATIENT SIGNED DISCHARGE PAPERWORK AND ANSWERED ANY QUESTIONS THE PATIENT AND FAMILY HAD. PT STATED WAS COMFORTABLE WITH DISCHARGE. REMOVED PT ID BAND. REMOVED IV. IV TIP INTACT. 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 PT IS STABLE AND IN NO APPARENT DISTRESS. OFFERED PT WHEELCHAIR ASSISTANCE PT STATED HE WOULD WALK. PT AMBULATED OFF THE UNIT WITH AND DAUGHTER.
== END 2019-01-22 14:18 | disposition home or self-care (01) | DRG 48 ==
LOC: MED 11:12 → MTU 13:50
PROVIDERS: ADMIT General Practice; ATTEND General Practice
DX: E11.43 Type 2 diabetes mellitus with diabetic autonomic (poly)neuropathy (principal); I21.A1 Myocardial infarction type 2; N17.0 Acute kidney failure with tubular necrosis; D68.59 Other primary thrombophilia; E83.39 Other disorders of phosphorus metabolism; E11.65 Type 2 diabetes mellitus with hyperglycemia; E83.42 Hypomagnesemia; E87.1 Hypo-osmolality and hyponatremia; K31.84 Gastroparesis; E87.2 Acidosis; E87.6 Hypokalemia; F10.239 Alcohol dependence with withdrawal, unspecified; Y90.0 Blood alcohol level of less than 20 mg/100 ml; E86.1 Hypovolemia; Y90.9 Presence of alcohol in blood, level not specified; I10 Essential (primary) hypertension; K74.60 Unspecified cirrhosis of liver; Z91.19 Patient's noncompliance with other medical treatment and regimen
CPT/HCPCS: 36415; 71045; 76705; 80048; 80053; 80076; 80305; 81001; 82140; 82150; 82247; 82948; 83036; 83605; 83690; 83735; 83880; 83930; 83935; 84100; 84300; 84439; 84443; 84484; 85025; 85610; 85730; 87081; 87086; 93005; 96361; 96374; 96375; 99285; C9113; G0482; J1644; J1815; J2001; J2405; J3475; J3480; J3490; J7030; J7060; Q0092

== ENCOUNTER 2019-01-23 21:33 | Inpatient (IN) | payer MEDICAID ==
[~2019-01-23] VITALS: Ht 167.6 cm; Wt 79.8 kg
[~2019-01-23 21:33] MED LIST changes: -BACTRIM DS 800/1 TAB PO; -CATAPRES0.1 MG PO; -CLEOCIN HCL300 MG PO; +GLIP5TAB13 PO; -KEFLEX250 MG/5 M PO; +METF1000 PO; -METFORMIN500 MG PO; -ZESTRIL30 MG PO
[2019-01-23 21:35] VITALS: BP 153/77
--- NOTE | 2019-01-23 21:35 | NUR ---
TO BED # 07 AMBULATORY
--- NOTE | 2019-01-23 21:35 | NUR ---
48 Y/O MALE PRESENTS TO ED WITH C/O DIZZINESS, LLQ ABD PAIN AND HIGH BLOOD SUGAR. BLOOD SUGAR Addendum: 01/23/19 at 2210 by MED 48 Y/O MALE PRESENTS TO ED WITH C/O DIZZINESS, LLQ ABD PAIN AND HIGH BLOOD SUGAR. BLOOD SUGAR 341. PT WAS DISCHARGED FROM [facility] ON 01/22/19. PT ALERT TO NAME, PLACE, TIME AND EVENT. NO ALOC. AMBULATORY WITH STEADY ALEXIS. BILAT EYES PERRLA. 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 NO N/V/D. POSITIONED IN BED FOR COMFORT. ER AWARE. X2 SIDE RAIL UP. CONTINUE TO MONITOR.
[2019-01-23] MEDS ORDERED: NACL 0.9% 1,000 ML IV ONE (22:00)
[2019-01-23 22:11] LABS: BASOPHILS % (AUTO) 0.6 % (0.0-2.0); EOSINOPHILS # (AUTO) 0.3 K/uL (0-0.4); HEMATOCRIT 34.3 % (36-52); HEMOGLOBIN 11.7 g/dL (12.0-18.0); LYMPHOCYTES # (AUTO) 1.9 K/uL (2.0-11.5); LYMPHOCYTES % (AUTO) 25.4 % (20.5-51.1); MEAN CORPUSCULAR HEMOGLOBIN 30 pg (27-31); MEAN CORPUSCULAR HGB CONC 34 g/dL (33-37); MEAN CORPUSCULAR VOLUME 88.6 fL (80-94); MONOCYTES % (AUTO) 13.6 % (1.7-9.3); NEUTROPHILS # (AUTO) 4.2 K/uL (1.8-7.7); NEUTROPHILS % (AUTO) 56.4 % (42.2-75.2); PLATELET COUNT (AUTO) 173 K/uL (140-450); RED BLOOD CELL COUNT(AUTO) 3.87 MIL/uL (4.20-6.10); RED CELL DISTRIBUTION WIDTH 13.7 % (11.6-13.7); WHITE BLOOD COUNT (AUTO) 7.5 K/uL (4.8-10.8)
[2019-01-23 22:40] LABS: ANION GAP 13.1 (8-16); CARBON DIOXIDE 27.8 mmol/L (21-32); CREATININE 1.2 mg/dL (0.7-1.3); POTASSIUM 3.9 mmol/L (3.5-5.1)
[2019-01-23 22:47] LABS: TOTAL BILIRUBIN 0.3 mg/dL (0.0-1.0)
--- NOTE | 2019-01-23 23:10 | NUR ---
Dr. Tarango evaluating patient at bedside.
[2019-01-23] MEDS ORDERED: INSULIN REGULAR, HUMAN 100 UNIT/ML VIAL IVP ONE (23:15)
[2019-01-23] MEDS ORDERED: MORPHINE SULFATE 4 MG/ML SYR IVP ONE (23:15)
--- NOTE | 2019-01-23 23:22 | NUR ---
X-Ray at bedside.
[2019-01-23] MEDS ORDERED: DEXTROSE 50% 50 ML SYR IVP PRN (23:25)
[2019-01-23] MEDS ORDERED: DOCUSATE SODIUM 100 MG GELCAP PO PRN (23:25)
[2019-01-23] MEDS ORDERED: ACETAMINOPHEN 325 MG TAB PO PRN (23:25)
[2019-01-23] MEDS ORDERED: HYDROcodone/APAP 5/325 MG 1 TAB TAB PO PRN (23:25)
[2019-01-23 23:47] LABS: PROTHROMBIN TIME 9.6 secs (10.8-13.4)
[2019-01-23 23:49] LABS: AMYLASE 68 U/L (25-115); MAGNESIUM 1.6 mg/dL (1.8-2.4); PHOSPHORUS 2.6 mg/dL (2.5-4.9)
--- NOTE | 2019-01-24 00:27 | NUR ---
REPORT GIVEN AND CARE TRANSFERED TO [facility] RN ROOM 105A. TRANSFERED VIA WHEEL CHAIR WITH VSS.
[2019-01-24 00:30] VITALS: BP 156/79
--- NOTE | 2019-01-24 00:30 | NUR ---
PT ARRIVED TO UNIT VIA WHEELCHAIR AND WAS ABLE TO AMBULATE TO BED. RECEIVED REPORT FROM ER NURSE DEMETRA-RN AT BEDSIDE. PT RESTING IN BED WITH DAUGHTER AT BEDSIDE. AOX4-ARMENIAN SPEAKING, ON ROOM AIR WITH LEFT AC #20G. DISCUSSED PLAN OF CARE AND PT VERBALIZED UNDERSTANDING. VITAL SIGNS TAKEN AND TOLERATED WELL- ELEVATED BP NOTED 156/79. MRSA NARES COLLECTED. NO S/S OF RESPIRATORY DISTRESS OR DISCOMFORT NOTED AT THIS TIME. BED IN LOWEST POSITION, BED BREAKS ON, BOTH SIDE RAILS UP. BEDSIDE TABLE AND CALL LIGHT ARE WITHIN REACH. WILL CONTINUE TO MONITOR.
[2019-01-24] MEDS: NACL 0.9% 1,000 ML IV SCH ×6 (00:35→20:42)
--- NOTE | 2019-01-24 00:35 | NUR ---
NEW IVF HUNG AND TOLERATING WELL. NO S/S OF RESPIRATORY DISTRESS OR DISCOMFORT NOTED AT THIS TIME. WILL CONTINUE TO MONITOR.
[2019-01-24] MEDS ORDERED: ALBUTEROL SULFATE/IPRATROPIU 3 ML SOL IH PRN (00:40)
--- NOTE | 2019-01-24 00:47 | NUR ---
SCHEDULED MEDICATION ZESTRIL GIVEN AND TOLERATED WELL. NO S/S OF RESPIRATORY DISTRESS OR DISCOMFORT NOTED AT THIS TIME. WILL CONTINUE TO MONITOR.
--- NOTE | 2019-01-24 00:55 | NUR ---
SCHEDULED MEDICATION MAGNESIUM IVPB GIVEN AND TOLERATING WELL. MAGNESIUM 1.6 NOTED. NO S/S OF RESPIRATORY DISTRESS OR DISCOMFORT NOTED AT THIS TIME. WILL CONTINUE TO MONITOR.
[2019-01-24] MEDS ORDERED: LISINOPRIL 10 MG TAB PO SCH (01:00)
[2019-01-24] MEDS ORDERED: MAG SULF 2000 MG/WATER PREMIX 50 ML IV SCH (01:00)
--- NOTE | 2019-01-24 02:00 | NUR ---
PT SLEEPING IN BED AT THIS TIME. NO S/S OF RESPIRATORY DISTRESS OR DISCOMFORT NOTED AT THIS TIME. WILL CONTINUE TO MONITOR.
--- NOTE | 2019-01-24 04:00 | NUR ---
PT CONTINUES TO SLEEP IN BED. NO S/S OF RESPIRATORY DISTRESS OR DISCOMFORT NOTED AT THIS TIME. WILL CONTINUE TO MONITOR.
[2019-01-24] MEDS: BLOOD GLUCOSE MONITORING 1 DEV DEV FS SCH ×4 (05:42→20:19)
[2019-01-24] MEDS: INSULIN LISPRO SLIDING SCALE 100 UNITS/ML VIAL SUBQ PRN ×3 (05:44→20:23)
--- NOTE | 2019-01-24 05:44 | NUR ---
BLOOD GLUCOSE 228- INSULIN COVERAGE GIVEN AND TOLERATED WELL. NO S/S OF RESPIRATORY DISTRESS OR DISCOMFORT NOTED AT THIS TIME. WILL CONTINUE TO MONITOR.
--- NOTE | 2019-01-24 06:26 | NUR ---
PATIENT HAS BEEN SCREENED AND CATEGORIZED LOW NUTRITION RISK. PATIENT WILL BE SEEN WITHIN 7 DAYS OF ADMISSION. 01/31/19 RITA LIMON MS, RDN
--- NOTE | 2019-01-24 07:24 | NUR ---
ENDORSED PT CARE TO DAY SHIFT NURSE JANETT-RN FOR CONTINUITY OF CARE.
--- NOTE | 2019-01-24 07:25 | NUR ---
Received report from pm nurse Jeri. Pt in bed, awake, no signs of distress. Left AC IV intact with ongoing NS @ 200ml/hr. Call light within reach.
[2019-01-24 07:42] LABS: BASOPHILS # (AUTO) 0.1 K/uL (0.00-0.22); BASOPHILS % (AUTO) 0.7 % (0.0-2.0); EOSINOPHILS # (AUTO) 0.3 K/uL (0-0.4); EOSINOPHILS % (AUTO) 3.7 % (0.0-4.0); HEMATOCRIT 33.5 % (36-52); HEMOGLOBIN 11.4 g/dL (12.0-18.0); LYMPHOCYTES # (AUTO) 1.8 K/uL (2.0-11.5); LYMPHOCYTES % (AUTO) 24.3 % (20.5-51.1); MEAN CORPUSCULAR HEMOGLOBIN 31 pg (27-31); MEAN CORPUSCULAR HGB CONC 34 g/dL (33-37); MEAN CORPUSCULAR VOLUME 89.7 fL (80-94); MONOCYTES % (AUTO) 14.1 % (1.7-9.3); NEUTROPHILS # (AUTO) 4.2 K/uL (1.8-7.7); NEUTROPHILS % (AUTO) 57.2 % (42.2-75.2); PLATELET COUNT (AUTO) 165 K/uL (140-450); RED BLOOD CELL COUNT(AUTO) 3.73 MIL/uL (4.20-6.10); RED CELL DISTRIBUTION WIDTH 13.6 % (11.6-13.7); WHITE BLOOD COUNT (AUTO) 7.4 K/uL (4.8-10.8)
[2019-01-24 08:00] VITALS: BP 147/77
[2019-01-24 08:08] LABS: CHOL/HDL RATIO 2.9 (1-4.5)
[2019-01-24 08:18] LABS: APPEARANCE,URINE CLEAR (CLEAR); BILIRUBIN,URINE NEGATIVE (NEGATIVE); BLOOD, URINE NEGATIVE (NEGATIVE); COLOR,URINE YELLOW (YELLOW); LEUKOCYTE ESTERASE ,URINE NEGATIVE (NEGATIVE); NITRITE, URINE NEGATIVE (NEGATIVE); UGLUCOSE 3+ (NEGATIVE)
[2019-01-24 08:30] LABS: RBC,URINE NONE SEEN /HPF (0-5); WBC,URINE NONE SEEN /HPF (0-5)
[2019-01-24] MEDS: LISINOPRIL 10 MG TAB PO SCH (09:37)
[2019-01-24] MEDS: ONDANSETRON 4 MG/2 ML VIAL IM/IVP PRN ×2 (09:38→15:50)
--- NOTE | 2019-01-24 09:38 | NUR ---
Zofran administered for c/o nausea. No episode of vomiting. Emesis bag provided. Call light within reach.
--- NOTE | 2019-01-24 10:38 | NUR ---
Lai reassessment: Pt sitting up in bed, daughter at bedside. No c/o nausea at this time. No signs of distress. Call light within reach. Will cont to monitor.
--- NOTE | 2019-01-24 12:15 | NUR ---
Pt c/o nausea with x1 episode of vomiting small amt (10-20ml) yellowish emesis. Zofran prn not yet due. Dr. Leavitt notified & will input order for promethazine.
[2019-01-24] MEDS ORDERED: PROMETHAZINE 25 MG TAB PO PRN (12:30)
--- NOTE | 2019-01-24 12:32 | NUR ---
Promethazine given for c/o nausea. Pt sitting up in bed, emesis bag at bedside. Daughter sitting at bedside as well. Call light within reach.
--- NOTE | 2019-01-24 13:32 | NUR ---
Pt asleep at this time, respirations even & nonlabored. No episode of vomiting per daughter at bedside. Left AC IV intact with ongoing NS @ 250ml/hr. Call light within reach.
[2019-01-24 16:00] VITALS: BP 133/72
--- NOTE | 2019-01-24 17:00 | NUR ---
Pt requesting to have food po. No c/o abd pain at this time. Dr. Leavitt notified of pt's request. Per physician, will input orders for clear liquid diet.
--- NOTE | 2019-01-24 19:05 | NUR ---
RECEIVED REPORT AT BEDSIDE FROM JANETT CALABRESE DAYSHIFT NURSE AT BEDSIDE FOR CONTINUITY OF CARE, PT IN STABLE CONDITION.
--- NOTE | 2019-01-24 19:05 | NUR ---
Bedside report given to pm nurse Tiffany. Pt in bed, awake, no c/o discomfort. Left AC IV intact with ongoing NS @ 250ml/hr. Call light within reach. Daughter at bedside.
--- NOTE | 2019-01-24 20:00 | NUR ---
PT IN LOW BED WITH SIDE RAILS UP X2. HE IS AOX4 AND HAS NO C/O OF PAIN OR NAUSEA, PT TOLERATING CLEAR LIQUID DIET WELL. PT REQUESTED A POPSICLE. LUNGS CLEAR AND BOWEL SOUNDS ACTIVE. DAUGHTER AT BEDSIDE AND CALL GUZMAN IN REACH.
--- NOTE | 2019-01-24 21:00 | NUR ---
V/S FOLLOWS T 97.8 P 90 R 18 B/P 154/85 02 100% ON ROOM AIR. F/S IS 158 2 UNITS GIVEN OF HUMALOG COVERAGE WELL ORDERED HEPARIN. PT ASKED FOR ADDITIONAL POPSICLE NO C/O VOICED AT THIS TIME AND ALL REQUESTED NEEDS ATTENDED.
--- NOTE | 2019-01-24 23:56 | NUR ---
PT IN LOW BED WITH SIDE RAILS UP X2. HE HAS NO C/O VOICED EXCEPT THAT HE IS HUNGRY, PT GIVEN SUGAR FREE JELLO AND WATER. DENIES NAUSEA AND PAIN AT THIS TIME IV SITE INTACT AND RUNNING N/S AT 250, IV FLUID BAG REPLACED. V/S FOLLOWS T 97.9 P 77 R 18 B/P 140/75 02 99% ON ROOM AIR. CALL GUZMAN IN REACH.
--- NOTE | 2019-01-25 | NUR ---
PT I BED SLEEPING BUT AROUSABLE TO NAME AND LIGHT TOUCH, V/S FOLLOWS T 97.9 P 77 R 18 B/P 140/75 02 99% WITH ROOM AIR.
[2019-01-25] MEDS: NACL 0.9% 1,000 ML IV SCH ×3 (00:42→09:12)
[2019-01-25] MEDS: BLOOD GLUCOSE MONITORING 1 DEV DEV FS SCH (06:21)
--- NOTE | 2019-01-25 06:34 | NUR ---
PT IN BED ASLEEP NO S/S OF PAIN OR DISTRESS NOTED LAST F/S IS 136 NO COVERAGE NEEDED. BED LOW AND SIDE RAILS UP X2 WITH CALL GUZMAN IN EACH, IV SITE ON RIGHT AC INTACT AND RUINING N/S AT 250MLS/HR.
[2019-01-25 07:16] LABS: BASOPHILS % (AUTO) 0.4 % (0.0-2.0); EOSINOPHILS # (AUTO) 0.3 K/uL (0-0.4); EOSINOPHILS % (AUTO) 4.2 % (0.0-4.0); HEMATOCRIT 33.5 % (36-52); HEMOGLOBIN 11.4 g/dL (12.0-18.0); LYMPHOCYTES # (AUTO) 1.5 K/uL (2.0-11.5); LYMPHOCYTES % (AUTO) 22.6 % (20.5-51.1); MEAN CORPUSCULAR HEMOGLOBIN 31 pg (27-31); MEAN CORPUSCULAR HGB CONC 34 g/dL (33-37); MEAN CORPUSCULAR VOLUME 89.6 fL (80-94); MONOCYTES % (AUTO) 15.8 % (1.7-9.3); NEUTROPHILS # (AUTO) 3.7 K/uL (1.8-7.7); PLATELET COUNT (AUTO) 193 K/uL (140-450); RED BLOOD CELL COUNT(AUTO) 3.74 MIL/uL (4.20-6.10); WHITE BLOOD COUNT (AUTO) 6.5 K/uL (4.8-10.8)
--- NOTE | 2019-01-25 07:26 | NUR ---
CARE ENDORSED TO BLAS CALABRESE AND JANETT CALABRESE AT BEDSIDE FOR CONTINUITY OF CARE, PT IN STABLE CONDITION.
--- NOTE | 2019-01-25 07:27 | NUR ---
RECEIVED BEDSIDE SHIFT REPORT FROM NIGHT NURSE. PT IS RESTING IN BED AOX4 WITH NO COMPLAINTS OF PAIN WITH BREATHING SYMMETRICAL AND UNLABORED. PT HAS A LEFT ANTECUBITAL IV SITE THAT IS RUNNING 250 ML/HR OF NORMAL SALINE. THE SITE IS ASYMPTOMATIC AND PATENT. ALL SAFETY MEASURES ARE IN PLACE WITH CALL LIGHT WITHIN REACH. NO OBVIOUS SIGNS OF DISTRESS.
[2019-01-25 07:42] LABS: ALBUMIN 2.8 g/dL (3.4-5.0); ANION GAP 9.6 (8-16); CARBON DIOXIDE 27.7 mmol/L (21-32); CREATININE 0.9 mg/dL (0.7-1.3); POTASSIUM 4.3 mmol/L (3.5-5.1); TOTAL BILIRUBIN 0.4 mg/dL (0.0-1.0)
[2019-01-25 07:43] LABS: MAGNESIUM 1.8 mg/dL (1.8-2.4); PHOSPHORUS 3.1 mg/dL (2.5-4.9)
[2019-01-25 08:00] VITALS: BP 148/87
--- NOTE | 2019-01-25 09:10 | NUR ---
PT RESTING IN BED WITH DAUGHTER AT BEDSIDE. NO COMPLAINTS OR REQUESTS AT THIS TIME, BREATHING UNLABORED NO OBVIOUS SIGNS OF DISTRESS.
[2019-01-25] MEDS: LISINOPRIL 10 MG TAB PO SCH (09:11)
[2019-01-25 09:36] LABS: LACTATE DEHYDROGENASE 144 IU/L (121-224)
[2019-01-25] MEDS ORDERED: LISI10TA11 PO (09:51)
--- NOTE | 2019-01-25 10:06 | NUR ---
PATIENT RESTING IN BED NO OBVIOUS SIGNS OF DISTRESS, DAUGHTER AT BEDSIDE.
--- NOTE | 2019-01-25 11:45 | NUR ---
DISCHARGE PATIENT, REVIEWED PAPERWORK WITH PATIENT VIA TRANSLATION PHONE. PATIENT'S DAUGHTER AT BEDSIDE. REMOVED IV AND APPLIED GAUZE AND BANDAID, IV TIP INTACT. PT BREATHING SYMMETRICAL AND UNLABORED AND DENYING PAIN. PATIENT LEFT UNIT AT THIS TIME WITH PRESENCE OF DAUGHTER.
[2019-01-29 06:14] LABS: LD1 FRACTION 27 % (17-32); LD2 FRACTION 35 % (25-40); LD3 FRACTION 19 % (17-27); LD4 FRACTION 7 % (5-13); LD5 FRACTION 12 % (4-20)
== END 2019-01-25 11:45 | disposition home or self-care (01) | DRG 282 ==
LOC: MED 21:33 → MTU 23:22
PROVIDERS: ADMIT General Practice; ATTEND General Practice
DX: K85.20 Alcohol induced acute pancreatitis without necrosis or infection (principal); D68.59 Other primary thrombophilia; E44.0 Moderate protein-calorie malnutrition; K70.30 Alcoholic cirrhosis of liver without ascites; E11.65 Type 2 diabetes mellitus with hyperglycemia; E83.42 Hypomagnesemia; E87.1 Hypo-osmolality and hyponatremia; I10 Essential (primary) hypertension; F10.10 Alcohol abuse, uncomplicated; Y90.9 Presence of alcohol in blood, level not specified; E87.6 Hypokalemia; J98.11 Atelectasis; E86.1 Hypovolemia; Z91.19 Patient's noncompliance with other medical treatment and regimen; Z68.28 Body mass index [BMI] 28.0-28.9, adult
CPT/HCPCS: 36415; 71045; 80053; 81001; 82150; 82948; 83036; 83625; 83690; 83735; 83880; 84100; 84134; 84484; 85025; 85610; 85730; 87081; 93005; 96374; 96375; 99285; G0482; J1644; J1815; J2270; J2405; J3475; J7030; Q0169

== ENCOUNTER 2019-11-26 04:45 | Emergency (ER) | payer SELFPAY ==
[~2019-11-26] VITALS: Ht 167.6 cm; Wt 88.5 kg
[~2019-11-26 04:45] MED LIST changes: +LISI10TA11 PO
[2019-11-26 04:51] VITALS: BP 161/97
--- NOTE | 2019-11-26 04:52 | NUR ---
PT AMBULATED TO BED 11 WITH STEADY GAIT
[2019-11-26] MEDS ORDERED: NACL 0.9% 1,000 ML IV SCH (04:54)
[2019-11-26] MEDS ORDERED: ONDANSETRON 4 MG/2 ML VIAL IVP ONE (04:55)
[2019-11-26] MEDS ORDERED: KETOROLAC 30 MG/ML VIAL IVP ONE (04:55)
--- NOTE | 2019-11-26 04:55 | NUR ---
49 Y/O MALE C/O ABD PAIN X 1 DAY. +N/V. PT HAS NOT BEEN TAKING HTN MEDICATION AND HAS BEEN DRINKING ALCOHOL FOR THE PAST FEW DAYS. PT DENIES ANY TRAUMA. PT STATES BLOOD PRESSURE IS HIGH. PT DENIES ANY VISION CHANGES. DENIES DIARRHEA; SKIN IS PINK/WARM/DRY; AAOX4 WITH EVEN AND STEADY GAIT; PT DENIES ANY FEVER, CP, SOB, OR COUGH AT THIS TIME; PATIENT STATES PAIN OF 7/10 AT THIS TIME; RR EVEN AND UNLABORED WITH RR 20 AND O2 Sat 98% ROOM AIR, HR 98, BP 159/103; PATIENT POSITIONED FOR COMFORT; HOB ELEVATED; BEDRAILS UP X2; BED DOWN AND WHEELS LOCKED. ER MD MADE AWARE OF PT STATUS. MEDICAL HX: LIVER DISEASE/HTN/DM NKA
--- NOTE | 2019-11-26 05:00 | NUR ---
AT BEDSIDE EXAMINING PT
--- NOTE | 2019-11-26 05:18 | NUR ---
LABS DRAWN AT BEDSIDE BY RN AND DELIVERED TO LAB BY RN
[2019-11-26 05:37] LABS: BASOPHILS % (AUTO) 0.3 % (0.0-2.0); EOSINOPHILS % (AUTO) 0.3 % (0.0-4.0); HEMATOCRIT 45.4 % (36-52); HEMOGLOBIN 15.7 g/dL (12.0-18.0); LYMPHOCYTES # (AUTO) 1.4 K/uL (2.0-11.5); LYMPHOCYTES % (AUTO) 15.3 % (20.5-51.1); MEAN CORPUSCULAR HEMOGLOBIN 31 pg (27-31); MEAN CORPUSCULAR HGB CONC 35 g/dL (33-37); MONOCYTES # (AUTO) 0.6 K/uL (0.8-1.0); MONOCYTES % (AUTO) 6.3 % (1.7-9.3); NEUTROPHILS # (AUTO) 7.3 K/uL (1.8-7.7); NEUTROPHILS % (AUTO) 77.8 % (42.2-75.2); PLATELET COUNT (AUTO) 253 K/uL (140-450); RED CELL DISTRIBUTION WIDTH 13.6 % (11.6-13.7); WHITE BLOOD COUNT (AUTO) 9.4 K/uL (4.8-10.8)
[2019-11-26] MEDS ORDERED: ENALAPRILAT 2.5 MG/2 ML VIAL IVP ONE (05:40)
[2019-11-26] MEDS ORDERED: MORPHINE SULFATE 4 MG/ML SYR IVP ONE (05:40)
--- NOTE | 2019-11-26 05:41 | NUR ---
INFORMED PT'S PAIN IS STILL 7/10 POST IV PUSH OF TORADOL AND BP 159/103. EVALUATING AND INPUTING NEW ORDERS.
[2019-11-26 05:54] LABS: ANION GAP 19.9 (8-16); CREATININE 1.1 mg/dL (0.6-1.3); POTASSIUM 3.9 mmol/L (3.5-5.1); TOTAL BILIRUBIN 1.3 mg/dL (0.0-1.0)
--- NOTE | 2019-11-26 06:11 | NUR ---
PT RESTING IN BED IN POSITION OF COMFORT, BED LOW AND WHEELS LOCKED, 2 SIDERAILS UP, LIGHTS DIMMED. FAMILY AT BEDSIDE PER HEARING THERAPIST . VSS. WILL CONTINUE TO MONITOR . MORPHINE MEDICATION HELPED DECREASE PAIN 5/10
--- NOTE | 2019-11-26 06:12 | NUR ---
AT BEDSIDE RE-EVALUATING PT
[2019-11-26] MEDS ORDERED: NACL 0.9% 1,000 ML IV ONE (06:15)
--- NOTE | 2019-11-26 07:11 | NUR ---
PT RESTING IN POSITION OF COMFORT, BED LOW AND LOCKED, VSS, 2 SIDERAILS UP, WILL CONTINUE TO MONITOR. WAITING FOR SECOND LITER BOLUS TO FINISH THEN WILL D/C PT
--- NOTE | 2019-11-26 07:15 | NUR ---
PT FEELING NAUSEOUS, ONE EPISODE OF VOMITTING. VERBAL ORDER FOR ZOFRAN 4MG ODT GIVEN, ORDER CARRIED OUT.
[2019-11-26] MEDS ORDERED: ONDANSETRON 4 MG ODT PO ONE (07:20)
--- NOTE | 2019-11-26 07:22 | NUR ---
REPORT GIVEN TO BHARATI FREIRE. TRANSFER OF CARE AT THIS TIME.
--- NOTE | 2019-11-26 07:35 | NUR ---
Patient discharged with v/s stable. Written and verbal after care instructions given and explained. Patient alert, oriented and verbalized understanding of instructions. Ambulatory with steady gait. All questions addressed prior to discharge. ID band removed. Patient advised to follow up with PMD. Rx of MOTRIN, ZOFRAN, PRILOSEC given. Patient educated on indication of medication including possible reaction and side effects. Opportunity to ask questions provided and answered.
[2019-11-26 07:36] VITALS: BP 110/76
== END 2019-11-26 07:35 | disposition home or self-care (01) ==
LOC: MED 04:45
DX: F10.20 Alcohol dependence, uncomplicated (principal); R10.13 Epigastric pain; R11.2 Nausea with vomiting, unspecified; R51 Headache
CPT/HCPCS: 36415; 80053; 82948; 83690; 84484; 85025; 96361; 96374; 96375; 96376; 99284; J1885; J2270; J2405; J3490; J7030; Q0162

== ENCOUNTER 2019-11-27 08:16 | Emergency (ER) | payer SELFPAY ==
[~2019-11-27] VITALS: Ht 167.6 cm; Wt 88.5 kg
[2019-11-27 08:19] VITALS: BP 168/102
[2019-11-27] MEDS ORDERED: ONDANSETRON 4 MG/2 ML VIAL IVP ONE (08:40)
[2019-11-27] MEDS ORDERED: ALUMINUM HYD/MAG/SIMETHICONE 30 ML UDC PO ONE (08:40)
[2019-11-27] MEDS ORDERED: NACL 0.9% 1,000 ML IV ONE (08:40)
[2019-11-27] MEDS ORDERED: DICYCLOMINE 10 MG CAP PO ONE (08:40)
[2019-11-27] MEDS ORDERED: LISINOPRIL 20 MG TAB PO ONE (08:55)
[2019-11-27 09:31] LABS: BASOPHILS % (AUTO) 0.5 % (0.0-2.0); EOSINOPHILS % (AUTO) 0.4 % (0.0-4.0); HEMATOCRIT 42.8 % (36-52); HEMOGLOBIN 14.7 g/dL (12.0-18.0); LYMPHOCYTES # (AUTO) 0.7 K/uL (2.0-11.5); LYMPHOCYTES % (AUTO) 7.4 % (20.5-51.1); MEAN CORPUSCULAR HEMOGLOBIN 31 pg (27-31); MEAN CORPUSCULAR HGB CONC 35 g/dL (33-37); MEAN CORPUSCULAR VOLUME 89.3 fL (80-94); MONOCYTES # (AUTO) 0.7 K/uL (0.8-1.0); MONOCYTES % (AUTO) 7.2 % (1.7-9.3); NEUTROPHILS # (AUTO) 8.3 K/uL (1.8-7.7); NEUTROPHILS % (AUTO) 84.5 % (42.2-75.2); PLATELET COUNT (AUTO) 207 K/uL (140-450); RED BLOOD CELL COUNT(AUTO) 4.79 MIL/uL (4.20-6.10); RED CELL DISTRIBUTION WIDTH 13.4 % (11.6-13.7); WHITE BLOOD COUNT (AUTO) 9.8 K/uL (4.8-10.8)
[2019-11-27 09:37] LABS: APPEARANCE,URINE CLEAR (CLEAR); BILIRUBIN,URINE NEGATIVE (NEGATIVE); BLOOD, URINE 1+ (NEGATIVE); COLOR,URINE YELLOW (YELLOW); LEUKOCYTE ESTERASE ,URINE NEGATIVE (NEGATIVE); NITRITE, URINE NEGATIVE (NEGATIVE); UGLUCOSE 3+ (NEGATIVE)
[2019-11-27 09:45] LABS: RBC,URINE 0-5 /HPF (0-5)
[2019-11-27 09:46] LABS: WBC,URINE 0 /HPF (0-5)
[2019-11-27] MEDS ORDERED: KETOROLAC 30 MG/ML VIAL IVP SCH (09:50)
[2019-11-27] MEDS ORDERED: KETOROLAC 30 MG/ML VIAL ONE (09:51)
[2019-11-27 09:58] LABS: ALBUMIN 3.7 g/dL (3.4-5.0); ANION GAP 17.3 (8-16); CARBON DIOXIDE 26.1 mmol/L (21-32); CREATININE 1.1 mg/dL (0.6-1.3); POTASSIUM 3.4 mmol/L (3.5-5.1); TOTAL BILIRUBIN 1.1 mg/dL (0.0-1.0)
[2019-11-27 10:41] VITALS: BP 148/73
== END 2019-11-27 10:41 | disposition home or self-care (01) ==
LOC: MED 08:16
DX: K29.20 Alcoholic gastritis without bleeding (principal); R51 Headache; R03.0 Elevated blood-pressure reading, without diagnosis of hypertension; E11.9 Type 2 diabetes mellitus without complications; R11.2 Nausea with vomiting, unspecified; I10 Essential (primary) hypertension; Z79.84 Long term (current) use of oral hypoglycemic drugs; Z79.899 Other long term (current) drug therapy
CPT/HCPCS: 36415; 70450; 74022; 80053; 81001; 82150; 83690; 84484; 85025; 93005; 96361; 96374; 96375; 99285; J1885; J2405; J7030

== ENCOUNTER 2021-04-30 15:12 | Emergency (ER) | payer SELFPAY ==
[~2021-04-30] VITALS: Ht 165.1 cm; Wt 84.1 kg
[~2021-04-30 15:12] MED LIST changes: +LISI-486 PO; -LISI10TA11 PO
[2021-04-30 15:52] VITALS: BP 164/100
[2021-04-30] MEDS ORDERED: DICYCLOMINE HCL LIQUID 20 MG, ALUMINUM HYD/MAG/SIMETHICONE 30 ML, LIDOCAINE VISCOUS 2% ... PO ONE ×6 (16:50→19:35)
[2021-04-30 18:25] LABS: BASOPHILS % (AUTO) 0.3 % (0.0-2.0); EOSINOPHILS % (AUTO) 0.5 % (0.0-4.0); HEMATOCRIT 43.9 % (36-52); HEMOGLOBIN 15.2 g/dL (12.0-18.0); MEAN CORPUSCULAR HEMOGLOBIN 31 pg (27-31); MEAN CORPUSCULAR HGB CONC 35 g/dL (33-37); MONOCYTES # (AUTO) 0.7 K/uL (0.8-1.0); MONOCYTES % (AUTO) 7.9 % (1.7-9.3); NEUTROPHILS # (AUTO) 5.7 K/uL (1.8-7.7); NEUTROPHILS % (AUTO) 67.3 % (42.2-75.2); PLATELET COUNT (AUTO) 232 K/uL (140-450); RED BLOOD CELL COUNT(AUTO) 4.99 MIL/uL (4.20-6.10); RED CELL DISTRIBUTION WIDTH 12.8 % (11.6-13.7); WHITE BLOOD COUNT (AUTO) 8.5 K/uL (4.8-10.8)
[2021-04-30 18:45] LABS: ANION GAP 13.8 (8-16); CARBON DIOXIDE 27.4 mmol/L (21-32); CREATININE 1.6 mg/dL (0.6-1.3); POTASSIUM 4.2 mmol/L (3.5-5.1); TOTAL BILIRUBIN 1.7 mg/dL (0.0-1.0)
[2021-04-30] MEDS ORDERED: ONDA-24 PO (18:57)
[2021-04-30] MEDS ORDERED: FAMO-90 PO (18:57)
[2021-04-30] MEDS ORDERED: MAG355OR2 PO (18:57)
[2021-04-30] MEDS ORDERED: ALUMINUM HYD/MAG/SIMETHICONE 30 ML UDC ONE (19:35)
[2021-04-30] MEDS ORDERED: DICYCLOMINE HCL LIQUID 10 MG/5 ML UDC ONE (19:35)
[2021-04-30 19:52] VITALS: BP 145/90
--- NOTE | 2021-05-01 01:08 | NUR ---
Patient discharged with v/s stable. Written and verbal after care instructions given and explained. Patient verbalized understanding. Ambulatory with steady gait. All questions addressed prior to discharge. Advised to follow up with PMD.
== END 2021-04-30 21:38 | disposition home or self-care (01) ==
LOC: MED 15:12
DX: K29.70 Gastritis, unspecified, without bleeding (principal); R11.0 Nausea; E11.9 Type 2 diabetes mellitus without complications; I10 Essential (primary) hypertension; Z79.899 Other long term (current) drug therapy; Z79.84 Long term (current) use of oral hypoglycemic drugs
CPT/HCPCS: 36415; 80053; 83690; 85025; 93005; 99284

== ENCOUNTER 2021-11-29 01:45 | Emergency (ER) | payer SELFPAY ==
[~2021-11-29] VITALS: Ht 165.1 cm; Wt 88.5 kg
[~2021-11-29 01:45] MED LIST changes: +FAMO-90 PO; +MAG355OR2 PO; +ONDA-188 PO
[2021-11-29 01:50] VITALS: BP 145/100
--- NOTE | 2021-11-29 01:58 | NUR ---
PT TAKEN TO BED 3
--- NOTE | 2021-11-29 02:12 | NUR ---
DR. WESTFALL AT BEDSIDE TO EXAM PATIENT.
--- NOTE | 2021-11-29 02:16 | NUR ---
C/O abdominal pain x 1 day. Patient reported, had epigastric pain, and vomiting, no diarrhea. PMHx: DM and HTN Sx: DENIES
[2021-11-29] MEDS ORDERED: ONDANSETRON 4 MG ODT PO ONE (02:25)
--- NOTE | 2021-11-29 02:26 | NUR ---
DR WESTFALL AT BEDSIDE FOR EXAM
[2021-11-29] MEDS ORDERED: ONDANSETRON 4 MG/2 ML VIAL IVP ONE (02:30)
[2021-11-29] MEDS ORDERED: NACL 0.9% 1,000 ML IV ONE (02:30)
[2021-11-29 02:39] LABS: BASOPHILS % (AUTO) 0.3 % (0.0-2.0); EOSINOPHILS % (AUTO) 0.2 % (0.0-4.0); HEMATOCRIT 41.5 % (36-52); HEMOGLOBIN 14.2 g/dL (12.0-18.0); LYMPHOCYTES # (AUTO) 1.8 K/uL (2.0-11.5); LYMPHOCYTES % (AUTO) 30.9 % (20.5-51.1); MEAN CORPUSCULAR HEMOGLOBIN 30 pg (27-31); MEAN CORPUSCULAR HGB CONC 34 g/dL (33-37); MEAN CORPUSCULAR VOLUME 86.7 fL (80-94); MONOCYTES # (AUTO) 0.4 K/uL (0.8-1.0); MONOCYTES % (AUTO) 7.3 % (1.7-9.3); NEUTROPHILS # (AUTO) 3.7 K/uL (1.8-7.7); NEUTROPHILS % (AUTO) 61.3 % (42.2-75.2); PLATELET COUNT (AUTO) 221 K/uL (140-450); RED BLOOD CELL COUNT(AUTO) 4.78 MIL/uL (4.20-6.10); RED CELL DISTRIBUTION WIDTH 13.6 % (11.6-13.7)
[2021-11-29 03:34] LABS: ALBUMIN 3.6 g/dL (3.4-5.0); ANION GAP 17.6 (8-16); CARBON DIOXIDE 23.4 mmol/L (21-32); CREATININE 1.2 mg/dL (0.6-1.3); TOTAL BILIRUBIN 0.9 mg/dL (0.0-1.0)
[2021-11-29] MEDS ORDERED: KETOROLAC 15 MG/ML VIAL IVP ONE (03:55)
[2021-11-29] MEDS ORDERED: PANTOPRAZOLE 40 MG INJ VIAL IVP ONE (03:55)
[2021-11-29] MEDS ORDERED: ONDA-188 PO (04:09)
[2021-11-29] MEDS ORDERED: OMEP-278 PO (04:09)
[2021-11-29 04:22] VITALS: BP 145/100
--- NOTE | 2021-11-29 04:22 | NUR ---
Patient discharged with v/s stable. Written and verbal after care instructions given and explained. Patient alert, oriented and verbalized understanding of instructions. Ambulatory with steady gait. All questions addressed prior to discharge. ID band removed. Patient advised to follow up with PMD. Rx of omeprazole ondansetron given. Patient educated on indication of medication including possible reaction and side effects. Opportunity to ask questions provided and answered.
--- NOTE | 2021-11-29 04:22 | NUR ---
IV removed, catheter intact and site benign. Applied folded 4x4 gauze and tape to stop bleeding.
== END 2021-11-29 04:22 | disposition home or self-care (01) ==
LOC: MED 01:45
DX: R10.13 Epigastric pain (principal); R11.2 Nausea with vomiting, unspecified; E86.0 Dehydration; E11.65 Type 2 diabetes mellitus with hyperglycemia; I10 Essential (primary) hypertension; Z79.899 Other long term (current) drug therapy
CPT/HCPCS: 36415; 80053; 81002; 82948; 83690; 85025; 96361; 96374; 96375; 99284; C9113; J1885; J2405; J7030

== ENCOUNTER 2023-01-23 16:34 | Emergency (ER) | payer SELFPAY ==
[~2023-01-23 16:34] MED LIST changes: +METF-1274 PO; -METF1000 PO; +OMEP-278 PO
--- NOTE | 2023-01-23 17:32 | NUR ---
NO ANSWER X 2 IN WAITING AREA
--- NOTE | 2023-01-23 17:51 | NUR ---
PATIENT LEFT WITHOUT BEING SEEN BY . NO FURTHER CARE PROVIDED FOR PATIENT.
[2023-01-24] MEDS ORDERED: LISI40TA8 PO (06:01)
[2023-01-24] MEDS ORDERED: MAG-27 PO (09:35)
[2023-01-24] MEDS ORDERED: ONDA-188 PO (09:35)
== END 2023-01-23 17:10 | disposition left against medical advice (07) ==
LOC: MED 16:34
DX: R51.9 Headache, unspecified (principal); M79.603 Pain in arm, unspecified; Z53.21 Procedure and treatment not carried out due to patient leaving prior to being seen by health care provider

== ENCOUNTER 2023-03-23 10:51 | Inpatient (IN) | payer MEDICAID ==
[~2023-03-23] VITALS: Ht 165.1 cm; Wt 89.8 kg
[~2023-03-23 10:51] MED LIST changes: -LISI-486 PO; +LISI40TA8 PO; +MAG-27 PO; -MAG355OR2 PO; -OMEP-278 PO
[2023-03-23 10:58] VITALS: BP 182/96; RESP 20; TEMP 98.8
[2023-03-23] MEDS ORDERED: FAMOTIDINE 20 MG/2 ML VIAL IVP ONE (11:15)
[2023-03-23] MEDS ORDERED: NACL 0.9% 1,000 ML IV ONE (11:15)
[2023-03-23] MEDS ORDERED: ONDANSETRON 4 MG/2 ML VIAL IVP ONE (11:25)
[2023-03-23 11:43] LABS: BASOPHILS % (AUTO) 0.3 % (0.0-2.0); EOSINOPHILS % (AUTO) 0.3 % (0.0-4.0); HEMATOCRIT 42.9 % (36-52); HEMOGLOBIN 14.9 g/dL (12.0-18.0); LYMPHOCYTES # (AUTO) 1.5 K/uL (2.0-11.5); LYMPHOCYTES % (AUTO) 18.4 % (20.5-51.1); MEAN CORPUSCULAR HEMOGLOBIN 30 pg (27-31); MEAN CORPUSCULAR HGB CONC 35 g/dL (33-37); MEAN CORPUSCULAR VOLUME 85.5 fL (80-94); MONOCYTES # (AUTO) 0.3 K/uL (0.8-1.0); MONOCYTES % (AUTO) 3.1 % (1.7-9.3); NEUTROPHILS # (AUTO) 6.5 K/uL (1.8-7.7); NEUTROPHILS % (AUTO) 77.9 % (42.2-75.2); PLATELET COUNT (AUTO) 200 K/uL (140-450); RED BLOOD CELL COUNT(AUTO) 5.02 MIL/uL (4.20-6.10); RED CELL DISTRIBUTION WIDTH 12.7 % (11.6-13.7); WHITE BLOOD COUNT (AUTO) 8.4 K/uL (4.8-10.8)
[2023-03-23 12:11] LABS: ANION GAP 25.4 (8-16); CARBON DIOXIDE 19.4 mmol/L (21-32); CREATININE 1.1 mg/dL (0.6-1.3); POTASSIUM 3.8 mmol/L (3.5-5.1)
--- NOTE | 2023-03-23 12:26 | NUR ---
52YO M PRESENTS W/N, V , HAND TREMORS, LT SHOULDER PAIN THIS MORNING. PT STATES HE HAS BEEN DRINKING FOR YEARS. LAST DRINK TODAY AT 7 AM X 5 BEERS. NAD NOTED, SAFETY MAINTAINED. CALL LIGHT IN REACH. HX:DM,HTN NKA
[2023-03-23] MEDS ORDERED: POTASSIUM CHLORIDE 10 MEQ TABER PO PRN (13:05)
[2023-03-23] MEDS ORDERED: ZOLPIDEM 10 MG TAB PO PRN (13:05)
[2023-03-23] MEDS ORDERED: ONDANSETRON 4 MG/2 ML VIAL IVP PRN (13:05)
[2023-03-23] MEDS ORDERED: MORPHINE SULFATE 2 MG/ML SYR IVP PRN (13:05)
[2023-03-23] MEDS ORDERED: MAG SULF 2000 MG/WATER PREMIX 50 ML IV PRN (13:05)
[2023-03-23] MEDS ORDERED: DOCUSATE SODIUM 100 MG GELCAP PO PRN (13:05)
[2023-03-23] MEDS ORDERED: DIAZEPAM PFS 10 MG/2 ML SYR IVP ONE (13:05)
[2023-03-23] MEDS ORDERED: DEXTROSE 50% 50 ML SYR IVP PRN (13:10)
[2023-03-23 13:19] VITALS: O2SAT 96
[2023-03-23 13:40] VITALS: BP 168/94; PULSE 100; PULSE 112; RESP 18; TEMP 98.1; O2SAT 97
--- NOTE | 2023-03-23 13:40 | NUR ---
Patient will be admitted to care of VENKATESH BARNARD MD. Admited to TELE. Will go to room 106B. Belongings list completed. Report to LUIS.
--- NOTE | 2023-03-23 13:54 | NUR ---
The patient's care was reviewed and supervised by [facility], RN.
[2023-03-23 14:00] VITALS: PULSE 100; RESP 18; O2SAT 97
--- NOTE | 2023-03-23 14:30 | NUR ---
PT BLOOD SUGAR LEVEL OF 263. 6 UNITS OF HUMALOG WAS ADMINISTERED PER MD ORDER. PT TOLERATED WELL. WILL CONTINUE TO MONITOR.
--- NOTE | 2023-03-23 15:02 | NUR ---
RECEIVED REPORT FROM ER NURSE FOR CONTINUITY OF CARE. PT ARRIVED TO [facility] DEPARTMENT AT 1340 VIA GURNEY. PT IS A&O X4, AMBULATORY AND CONTINENT. IV SITE LOCATED AT LEFT AC 20 GAUGE, INTACT AND PATENT, CURRENTLY SALINE LOCK. PT STATES NO PAIN, ONLY THAT HE FEELS NAUSEATED. VITAL SIGNS TAKEN, PT BLOOD PRESSURE 168/94, ALL OTHER VS WNL. ORIENTED PT TO ROOM, CALL LIGHT CONTROLS, AND BED CONTROLS. SAFETY MEASURES IN PLACE, WILL MAKE FREQUENT ROUNDS.
[2023-03-23 16:00] VITALS: BP 153/79; PULSE 104; PULSE 99; RESP 16; TEMP 98.8; O2SAT 96
[2023-03-23] MEDS: BLOOD GLUCOSE MONITORING 1 DEV DEV FS SCH ×2 (16:40→20:39)
[2023-03-23] MEDS: INSULIN LISPRO SLIDING SCALE 100 UNITS/ML VIAL SUBQ PRN ×2 (16:48→20:44)
--- NOTE | 2023-03-23 16:53 | NUR ---
PATIENT COMPLAINT OF SEVERE NAUSEA. POC DISCUSSED AND ZOFRAN WAS ADMINISTERED IVP PRN BY RN: KALE. WILL CONTINUE TO MONITOR.
--- NOTE | 2023-03-23 19:21 | NUR ---
ENDORSED TO DOMAIN ARCHITECT NURSE FOR CONTINUITY OF CARE. PT IS STABLE AT THIS TIME.
--- NOTE | 2023-03-23 19:22 | NUR ---
RECEIVED PT FROM MORNING SHIFT NURSE. PT IS AOX4, AMBULATORY, BENINESE SPEAKING, ABLE TO VERBALIZE NEEDS AND ABLE TO FOLLOW COMMANDS. PT IS ON ROOM AIR AND ON REGULAR DIET. PT HAS IV ON LEFT AC GAUGE 20, SALINE LOCK. PT SKIN IS INTACT. NO COMPLAIN OF PAIN AT THIS TIME, NO S/S OF RESPIRATORY DISTRESS NOTED. ALL SAFETY MEASURES IMPLEMENTED. BED IN LOW POSITION, BED WHEELS ON LOCK AND CALL LIGHT WITHIN REACH.
--- NOTE | 2023-03-23 19:23 | NUR ---
NOTIFIED DR. BARNARD THAT ZOFRAN WAS NOT EFFECTIVE TO PT. DR. BARNARD ORDER REGLAN 5MG IV ONCE. ORDER WAS MADE AND CARRIED OUT.
[2023-03-23 20:00] VITALS: BP 145/85; PULSE 107; PULSE 117; RESP 20; TEMP 98; O2SAT 97
[2023-03-23] MEDS: LORazepam 2 MG/ML VIAL IVP PRN (20:31)
--- NOTE | 2023-03-23 20:44 | NUR ---
SCHEDULED AND PRESCRIBED MEDICATION WAS GIVEN TO PT PER MD ORDER. ATIVAN AND REGLAN WAS ALSO GIVEN TO PT. ALL SAFETY MEASURES IMPLEMENTED. BED IN LOW POSITION, BED WHEELS ON LOCK AND CALL LIGHT WITHIN REACH.
[2023-03-23] MEDS ORDERED: METOCLOPRAMIDE 10 MG/2 ML INJ VIAL IVP ONE (21:00)
--- NOTE | 2023-03-23 22:00 | NUR ---
PT WAS GIVEN WATER PER REQUEST. NO COMPLAIN OF PAIN AT THIS TIME. NO S/S OF RESPIRATORY DISTRESS NOTED. ALL SAFETY MEASURES IMPLEMENTED. BED IN LOW POSITION, BED WHEELS ON LOCK AND CALL LIGHT WITHIN REACH.
[2023-03-24] VITALS (7 sets, daily range): BP systolic 101–175; BP diastolic 77–98; PULSE 78–103; RESP 17–19; TEMP 97.5–98.1; O2SAT 95–97
--- NOTE | 2023-03-24 | NUR ---
PT IS ON SLEEP. CHEST RISE AND FALL SYMMETRICALLY NOTED. RESPIRATION IS EVEN AND UNLABORED. ALL SAFETY MEASURES IMPLEMENTED. BED IN LOW POSITION, BED WHEELS ON LOCK AND CALL LIGHT WITHIN REACH.
--- NOTE | 2023-03-24 02:00 | NUR ---
CHECKED THE PT, STILL ON SLEEP. CHEST RISE AND FALL SYMMETRICALLY NOTED. RESPIRATION IS EVEN AND UNLABORED. ALL SAFETY MEASURES IMPLEMENTED. BED IN LOW POSITION, BED WHEELS ON LOCK AND CALL LIGHT WITHIN REACH.
--- NOTE | 2023-03-24 04:00 | NUR ---
WARM BLANKET WAS GIVEN TO PT. NO COMPLAIN OF PAIN. NO S/S OF RESPIRATORY DISTRESS. ALL SAFETY MEASURES IMPLEMENTED. BED IN LOW POSITION, BED WHEELS ON LOCK AND CALL LIGHT WITHIN REACH.
[2023-03-24 06:16] LABS: BASOPHILS % (AUTO) 0.1 % (0.0-2.0); EOSINOPHILS # (AUTO) 0.1 K/uL (0-0.4); HEMATOCRIT 40.3 % (36-52); HEMOGLOBIN 13.9 g/dL (12.0-18.0); LYMPHOCYTES # (AUTO) 1.7 K/uL (2.0-11.5); LYMPHOCYTES % (AUTO) 15.8 % (20.5-51.1); MEAN CORPUSCULAR HEMOGLOBIN 30 pg (27-31); MEAN CORPUSCULAR HGB CONC 35 g/dL (33-37); MEAN CORPUSCULAR VOLUME 85.8 fL (80-94); MONOCYTES # (AUTO) 0.8 K/uL (0.8-1.0); MONOCYTES % (AUTO) 7.4 % (1.7-9.3); NEUTROPHILS % (AUTO) 75.7 % (42.2-75.2); PLATELET COUNT (AUTO) 150 K/uL (140-450); RED CELL DISTRIBUTION WIDTH 12.6 % (11.6-13.7); WHITE BLOOD COUNT (AUTO) 10.5 K/uL (4.8-10.8)
[2023-03-24] MEDS: BLOOD GLUCOSE MONITORING 1 DEV DEV FS SCH ×4 (06:35→20:31)
[2023-03-24] MEDS: INSULIN LISPRO SLIDING SCALE 100 UNITS/ML VIAL SUBQ PRN ×4 (06:35→20:42)
--- NOTE | 2023-03-24 06:35 | NUR ---
PT BLOOD GLUCOSE IS 227. HUMALOG INSULIN 4 UNITS WAS GIVEN TO PT.
[2023-03-24 06:38] LABS: ANION GAP 16.3 (8-16); CARBON DIOXIDE 26.6 mmol/L (21-32); POTASSIUM 3.9 mmol/L (3.5-5.1)
--- NOTE | 2023-03-24 07:26 | NUR ---
PT IS STABLE. ENDORSED PT TO MORNING SHIFT NURSE FOR CONTINUITY OF CARE.
--- NOTE | 2023-03-24 07:27 | NUR ---
RECEIVED PT FROM FINANCIAL PLANNING CONSULTANT NURSE FOR CONTINUITY OF CARE. PT IS SLEEPING. VISIBLE CHEST RISE AND FALL. RESPIRATIONS EVEN AND UNLABORED ON RA. IV ON LAC 20G, SL. SKIN WARM AND DRY. CALL LIGHT WITHIN REACH. ALL SAFETY PRECAUTIONS IN PLACE.
[2023-03-24] MEDS ORDERED: INSULIN LISPRO SLIDING SCALE 100 UNITS/ML VIAL SUBQ PRN (07:30)
--- NOTE | 2023-03-24 08:43 | NUR ---
PATIENT HAS BEEN SCREENED AND CATEGORIZED LOW NUTRITION RISK. PATIENT WILL BE SEEN WITHIN 7 DAYS OF ADMISSION. 03/30/[address]
--- NOTE | 2023-03-24 09:00 | NUR ---
Patient's Plan of Care was discussed and reviewed with HEAD TENNIS COACH: MARIELA
--- NOTE | 2023-03-24 09:10 | NUR ---
CALLED PHARMACY SPOKE TO JULEE PHARMACIST, INFORMED HER PT VIT B/C COMPLEX NOT SCANNING. EMAR GIVING MESSAGE MEDICATION NOT FOUND. PER JULEE THEY TRIED TO FIX IT AND IT IS NOT WORKING. OKAY TO MANUALLY ENTER MEDICATION.
[2023-03-24] MEDS: VITAMIN B COMPLEX W/C 1 TAB PO SCH (09:15)
[2023-03-24] MEDS: FOLIC ACID 1 MG TAB PO SCH (09:15)
[2023-03-24] MEDS: ACETAMINOPHEN 325 MG TAB PO PRN ×2 (10:14→20:25)
--- NOTE | 2023-03-24 11:27 | NUR ---
RADIOLOGY CALLED. ASKING PT TO BE PLACED NPO FOR ABD U/S. EXPLAINED TO PT, PT VERBALIZED UNDERSTANDING.
[2023-03-24] MEDS: LORazepam 2 MG/ML VIAL IVP PRN (12:34)
[2023-03-24] MEDS ORDERED: ONDANSETRON 4 MG/2 ML VIAL IVP PRN (13:40)
[2023-03-24] MEDS ORDERED: ACETAMINOPHEN 325 MG TAB PO PRN (13:40)
[2023-03-24] MEDS ORDERED: HYDROcodone/APAP 7.5/325 MG 1 TAB PO PRN (13:40)
[2023-03-24] MEDS: NACL 0.9% 1,000 ML IV SCH (14:13)
[2023-03-24 14:15] LABS: CHOL/HDL RATIO 3.4 (1-4.5); FREE T4 (FREE THYROXINE) 0.99 ng/dL (0.76-1.46); PHOSPHORUS 2.7 mg/dL (2.5-4.9); THYROID STIMULATING HORMONE 3.48 uIU/mL (0.34-3.74)
[2023-03-24 14:44] LABS: PROTHROMBIN TIME 10.2 secs (10.8-13.4)
--- NOTE | 2023-03-24 16:47 | NUR ---
Broadcast Maintenance Technician Met with pt. bedside, was agreeable to this interview for a discharge planning assessment. Pt. participated in this interview, poor eye contact and his answers were appropriate. The demographics on the face sheet were confirmed. Pt. agrees his excessive drinking is a problem. Pt. stated he wants help but his actions are conflicting. Pt. has gone to AA once at his [facility]idi and a couple of times with in his community, but stopped going stating he did not like participants stories. Pt. can perform all DMEs, does not use any medical equipment other than a glucometer. Dtr. stated pt. is non-compliant and does not allow dtr to check his glucose levels.TRANSPORTATION WORKER educated patient and provided numerous resources for intervention. Dtr. Also stated she can continue to assist pt. with getting into a program, AA and individual counseling. TRANSPORTATION WORKER will remain available as needed.
[2023-03-24] MEDS ORDERED: hydrALAZINE 20 MG/ML VIAL IVP PRN (17:25)
--- NOTE | 2023-03-24 18:16 | NUR ---
GAVE HYDRALAZINE IV 10MG FOR 175/81 BP. DISCARDED THE REST, WITNESSED BY SHAHIDA.
--- NOTE | 2023-03-24 19:10 | NUR ---
ENDORSED PT TO LIBRARY TECHNICAL ASSISTANT NURSE FOR CONTINUITY OF CARE SHAWN. NURSE TO FOLLOW UP ON BP REASSESSMENT AND URINE SAMPLE. PT IN STABLE CONDITION.
--- NOTE | 2023-03-24 19:11 | NUR ---
RECD. RESTING IN BED, AWAKE, A/OX4. RESPIRATION EVEN AND UNLABORED. 0N 02 AT 2 LITERS VIA N/C. IV OF NS INFUSING AT 50 ML/HR AT THE LEFT AC G20. CONVERSING WITH DAUGHTER AT THE BEDSIDE. ABLE TO VERBALIZED NEEDS AND AMBULATE TO THE BR WITH ASSISTANCE. DENIES PAIN 0/10.
[2023-03-24] MEDS: DOCUSATE SODIUM 100 MG GELCAP PO SCH (20:22)
[2023-03-24 20:47] LABS: APPEARANCE,URINE CLEAR (CLEAR); BILIRUBIN,URINE 1+ (NEGATIVE); BLOOD, URINE TRACE-I (NEGATIVE); COLOR,URINE YELLOW (YELLOW); LEUKOCYTE ESTERASE ,URINE NEGATIVE (NEGATIVE); NITRITE, URINE NEGATIVE (NEGATIVE); PH,URINE 6.5 (5.0-9.0); UGLUCOSE 2+ (NEGATIVE)
[2023-03-24 21:03] LABS: BARBITURATE, URINE NEGATIVE ng/ml (NEG <=200); BENZODIAZEPINE, URINE POSITIVE ng/mL (NEG <=200); CANNABINOID, URINE NEGATIVE ng/mL (NEG <=50); COCAINE, URINE NEGATIVE ng/mL (NEG <=300); OPIATE, URINE NEGATIVE ng/mL (NEG <=2000); PHENCYCLIDINE SCREEN,URINE NEGATIVE ng/mL (NEG <=25)
--- NOTE | 2023-03-24 21:05 | NUR ---
URINE SPECIMEN SENT TO LAB FOR URINE TEST.
--- NOTE | 2023-03-24 21:09 | NUR ---
NAUSEATED, MEDICATED WITH ZOFRAN PER MD ORDER BY ALEXEY CALABRESE.
--- NOTE | 2023-03-24 22:10 | NUR ---
RESTING IN BED, NO NAUSEA NOTED.
--- NOTE | 2023-03-24 23:01 | NUR ---
UNABLE TO SLEEP, MEDICATED WITH AMBIEN PO PER MD ORDER.
[2023-03-25] VITALS: PULSE 88
--- NOTE | 2023-03-25 01:05 | NUR ---
AWAKE, SITTING ON BED, INQUIRED IF HE NEEDS HELP, STATED "NO". WENT BACK TO SLEEP.
--- NOTE | 2023-03-25 03:00 | NUR ---
SLEEPING COMFORTABLY IN BED. RESPIRATION EVEN AND UNLABORED.
[2023-03-25 04:00] VITALS: BP 155/71; PULSE 85; PULSE 96; RESP 18; TEMP 97.9; O2SAT 96
--- NOTE | 2023-03-25 06:00 | NUR ---
ABLE TO SLEEP WELL DURING THE NIGHT. VS STABLE.
[2023-03-25] MEDS: BLOOD GLUCOSE MONITORING 1 DEV DEV FS SCH (06:23)
[2023-03-25] MEDS: INSULIN LISPRO SLIDING SCALE 100 UNITS/ML VIAL SUBQ PRN (06:26)
[2023-03-25 06:33] LABS: BASOPHILS % (AUTO) 0.5 % (0.0-2.0); EOSINOPHILS # (AUTO) 0.3 K/uL (0-0.4); EOSINOPHILS % (AUTO) 3.2 % (0.0-4.0); HEMATOCRIT 40.8 % (36-52); LYMPHOCYTES # (AUTO) 1.7 K/uL (2.0-11.5); MEAN CORPUSCULAR HEMOGLOBIN 30 pg (27-31); MEAN CORPUSCULAR HGB CONC 35 g/dL (33-37); MEAN CORPUSCULAR VOLUME 87.1 fL (80-94); MONOCYTES # (AUTO) 0.7 K/uL (0.8-1.0); MONOCYTES % (AUTO) 8.2 % (1.7-9.3); NEUTROPHILS # (AUTO) 5.3 K/uL (1.8-7.7); NEUTROPHILS % (AUTO) 67.1 % (42.2-75.2); PLATELET COUNT (AUTO) 129 K/uL (140-450); RED BLOOD CELL COUNT(AUTO) 4.68 MIL/uL (4.20-6.10); RED CELL DISTRIBUTION WIDTH 12.3 % (11.6-13.7); WHITE BLOOD COUNT (AUTO) 7.9 K/uL (4.8-10.8)
[2023-03-25 06:49] LABS: ANION GAP 15.8 (8-16); CARBON DIOXIDE 26.6 mmol/L (21-32); CREATININE 1.1 mg/dL (0.6-1.3); POTASSIUM 3.4 mmol/L (3.5-5.1)
--- NOTE | 2023-03-25 07:15 | NUR ---
ENDORSED TO LUIS NOGUEIRA FOR CONTINUITY OF CARE.
[2023-03-25 08:00] VITALS: BP 178/89; PULSE 75; PULSE 98; RESP 17; TEMP 97.6; O2SAT 98
[2023-03-25] MEDS: VITAMIN B COMPLEX W/C 1 TAB PO SCH (08:45)
[2023-03-25] MEDS: FOLIC ACID 1 MG TAB PO SCH (08:46)
[2023-03-25] MEDS: DOCUSATE SODIUM 100 MG GELCAP PO SCH (08:46)
[2023-03-25] MEDS ORDERED: PROCHLORPERAZINE 5 MG TAB PO PRN (08:55)
[2023-03-25] MEDS ORDERED: NON-FORMULARY ITEM (Lisinopril 1 TAB) PO SCH (09:00)
[2023-03-25] MEDS ORDERED: glipiZIDE 5 MG TAB PO SCH (09:00)
[2023-03-25] MEDS ORDERED: PANTOPRAZOLE 40 MG INJ VIAL IVP SCH (09:00)
[2023-03-25] MEDS ORDERED: metFORMIN 500 MG TAB PO SCH (09:00)
[2023-03-25] MEDS ORDERED: lisinopriL 20 MG TAB PO SCH (09:00)
--- NOTE | 2023-03-25 09:00 | NUR ---
SCHEDULED MEDICATIONS ADMINISTERED. PT TOLERATED WELL. IV SITE LEAKING. NEW IV SITE WAS STARTED AT RIGHT WRIST 20 GAUGE.
[2023-03-25] MEDS: NACL 0.9% 1,000 ML IV SCH (09:40)
[2023-03-25] MEDS ORDERED: LACTULOSE 20 GM/30 ML UDC PO SCH (10:34)
[2023-03-25] MEDS ORDERED: B-CO1TAB3 PO (10:37)
[2023-03-25] MEDS ORDERED: LACT10SO11 PO (10:37)
[2023-03-25] MEDS ORDERED: FOLI1TAB90 PO (10:37)
[2023-03-25] MEDS ORDERED: DOCU-299 PO (10:37)
[2023-03-25] MEDS ORDERED: LISI20TA29 PO (10:37)
[2023-03-25 11:55] VITALS: BP 141/61; PULSE 99; RESP 18; TEMP 97.7
[2023-03-25 12:00] VITALS: BP 141/61; PULSE 104; PULSE 99; RESP 18; TEMP 97.7; O2SAT 97
--- NOTE | 2023-03-25 12:21 | NUR ---
PT DISCHARGED TO HOME. IV SITE AND ARM BAND REMOVED. ALL PATIENT BELONGINGS WITH PATIENT. GOING HOME WITH FAMILY.
[2023-03-26] MEDS ORDERED: LACTULOSE 20 GM/30 ML UDC PO SCH (09:00)
== END 2023-03-25 12:20 | disposition home or self-care (01) | DRG 816 ==
LOC: MED 10:51 → MTU 13:00
PROVIDERS: ADMIT Family Medicine; ATTEND Family Medicine
DX: T51.0X1A Toxic effect of ethanol, accidental (unintentional), initial encounter (principal); G92.8 Other toxic encephalopathy; E87.1 Hypo-osmolality and hyponatremia; K76.82 Hepatic encephalopathy; G71.00 Muscular dystrophy, unspecified; E78.5 Hyperlipidemia, unspecified; E11.9 Type 2 diabetes mellitus without complications; F10.129 Alcohol abuse with intoxication, unspecified; F10.139 Alcohol abuse with withdrawal, unspecified; E87.6 Hypokalemia; Z79.899 Other long term (current) drug therapy; I10 Essential (primary) hypertension
CPT/HCPCS: 36415; 70450; 71045; 76700; 80048; 80305; 81001; 82140; 82150; 82948; 83036; 83605; 83690; 83735; 83880; 84100; 84439; 84443; 84484; 85025; 85610; 85730; 87040; 87081; 87086; 93005; 96361; 96374; 96375; 99291; C9113; J0360; J1815; J2060; J2405; J2765; J3360; J3490; Q0092

== ENCOUNTER 2023-08-02 10:07 | Emergency (ER) | payer MEDICAID ==
[~2023-08-02 10:07] MED LIST changes: +B-CO1TAB3 PO; +DOCU-299 PO; -FAMO-90 PO; +FOLI1TAB90 PO; +LACT10SO11 PO; +LISI20TA29 PO; -MAG-27 PO; -ONDA-188 PO
[2023-08-05] MEDS ORDERED: AMLO10TA PO (12:53)
== END 2023-08-02 15:17 | disposition left against medical advice (07) ==
LOC: MED 10:07
DX: R53.1 Weakness (principal); Z53.21 Procedure and treatment not carried out due to patient leaving prior to being seen by health care provider

== ENCOUNTER 2023-11-23 20:03 | Inpatient (IN) | payer MEDICAID ==
[~2023-11-23] VITALS: Ht 165.1 cm; Wt 86.2 kg
[~2023-11-23 20:03] MED LIST changes: +AMLO10TA PO; -GLIP5TAB13 PO; +GLIP5TAB23 PO; -LISI40TA8 PO
[2023-11-23 20:36] VITALS: BP 135/82; PULSE 105; RESP 17; TEMP 98.7; O2SAT 98
[2023-11-23] MEDS: NACL 0.9% 1,000 ML IV ONE (21:07)
[2023-11-23] MEDS: ONDANSETRON 4 MG/2 ML VIAL IVP ONE (21:08)
[2023-11-23 21:11] LABS: HEMOGLOBIN 14.7 g/dL (12.0-18.0); LYMPHOCYTES # (AUTO) 1.3 K/uL (2.0-11.5); LYMPHOCYTES % (AUTO) 11.2 % (20.5-51.1); MEAN CORPUSCULAR HEMOGLOBIN 30 pg (27-31); MEAN CORPUSCULAR HGB CONC 36 g/dL (33-37); MEAN CORPUSCULAR VOLUME 84.3 fL (80-94); MONOCYTES # (AUTO) 0.7 K/uL (0.8-1.0); NEUTROPHILS % (AUTO) 82.8 % (42.2-75.2); PLATELET COUNT (AUTO) 226 K/uL (140-450); RED BLOOD CELL COUNT(AUTO) 4.87 MIL/uL (4.20-6.10); RED CELL DISTRIBUTION WIDTH 12.6 % (11.6-13.7)
[2023-11-23 21:33] LABS: APPEARANCE,URINE CLEAR (CLEAR); BILIRUBIN,URINE NEGATIVE (NEGATIVE); BLOOD, URINE 3+ (NEGATIVE); COLOR,URINE YELLOW (YELLOW); LEUKOCYTE ESTERASE ,URINE NEGATIVE (NEGATIVE); NITRITE, URINE NEGATIVE (NEGATIVE); PROTEIN,URINE 3+ (NEGATIVE); UGLUCOSE 3+ (NEGATIVE)
[2023-11-23 21:41] LABS: ACETONE, SERUM Negative (NEGATIVE)
[2023-11-23 21:44] LABS: ANION GAP 23.5 (8-16); CALCIUM 8.7 mg/dL (8.5-10.1); CARBON DIOXIDE 20.8 mmol/L (21-32); CREATININE 1.1 mg/dL (0.6-1.3); POTASSIUM 3.3 mmol/L (3.5-5.1)
[2023-11-23 21:51] LABS: ALANINE AMINOTRANSFERASE 30 U/L (12-78); ALBUMIN 3.9 g/dL (3.4-5.0); ALCOHOL, BLOOD 58 mg/dL (<10); ALKALINE PHOSPHATASE 135 U/L (50-136); ASPARTATE AMINOTRANSFERASE 38 U/L (15-37); BILIRUBIN,DIRECT 0.9 mg/dL (0.0-0.3); LIPASE 47 U/L (16-77); TOTAL BILIRUBIN 3.3 mg/dL (0.0-1.0); TOTAL PROTEIN, SERUM 7.8 g/dL (6.4-8.2)
[2023-11-23 21:59] LABS: ACETAMINOPHEN < 0.5 ug/ml (10-30); SALICYLATE < 2.8 mg/dL (2.8-20.0)
[2023-11-23 22:06] LABS: BACTERIA,URINE FEW /HPF (None Seen); RBC,URINE 0-5 /HPF (0-5); SQUAMOUS EPITHELIAL CELL,UR 0-3 (FEW) /LPF (0-3 (FEW)); WBC,URINE NONE SEEN /HPF (0-5)
[2023-11-23 22:11] LABS: AMPHETAMINE, URINE NEGATIVE ng/ml (NEG <=1000); BARBITURATE, URINE NEGATIVE ng/ml (NEG <=200); BENZODIAZEPINE, URINE NEGATIVE ng/mL (NEG <=200); CANNABINOID, URINE NEGATIVE ng/mL (NEG <=50); COCAINE, URINE NEGATIVE ng/mL (NEG <=300); OPIATE, URINE NEGATIVE ng/mL (NEG <=2000); PHENCYCLIDINE SCREEN,URINE NEGATIVE ng/mL (NEG <=25)
[2023-11-23] MEDS ORDERED: hydrALAZINE 20 MG/ML VIAL IVP PRN (22:30)
[2023-11-23] MEDS: NACL 0.9% 1,000 ML IV SCH (22:30)
[2023-11-23] MEDS ORDERED: LORazepam 2 MG/ML VIAL IVP PRN (22:30)
[2023-11-23] MEDS ORDERED: ATOR10TA PO (22:32)
[2023-11-23] MEDS ORDERED: ERGO-30 PO (22:32)
[2023-11-23] MEDS ORDERED: INSU100S22 SUBQ (22:32)
[2023-11-23] MEDS: ASPIRIN 81 MG TAB.CHEW PO ONE (22:43)
[2023-11-23] MEDS: FOLIC ACID 1 MG TAB PO ONE (23:32)
[2023-11-23 23:41] LABS: MAGNESIUM 2.1 mg/dL (1.8-2.4); PHOSPHORUS 3.1 mg/dL (2.5-4.9)
[2023-11-23] MEDS: THIAMINE 200 MG/2 ML VIAL IM ONE (23:43)
[2023-11-23] MEDS: POTASSIUM CHLORIDE 10 MEQ TABER PO ONE (23:50)
[2023-11-24] VITALS (7 sets, daily range): BP systolic 101–170; BP diastolic 50–86; PULSE 58–95; RESP 18; TEMP 97.5–98.1; O2SAT 96–97
[2023-11-24] MEDS: ONDANSETRON 4 MG/2 ML VIAL IVP PRN (02:47)
[2023-11-24 07:45] LABS: BASOPHILS % (AUTO) 0.2 % (0.0-2.0); EOSINOPHILS % (AUTO) 0.3 % (0.0-4.0); HEMATOCRIT 39.8 % (36-52); HEMOGLOBIN 14.2 g/dL (12.0-18.0); LYMPHOCYTES # (AUTO) 1.5 K/uL (2.0-11.5); LYMPHOCYTES % (AUTO) 14.3 % (20.5-51.1); MEAN CORPUSCULAR HEMOGLOBIN 30 pg (27-31); MEAN CORPUSCULAR HGB CONC 36 g/dL (33-37); MEAN CORPUSCULAR VOLUME 84.3 fL (80-94); MONOCYTES # (AUTO) 1.1 K/uL (0.8-1.0); MONOCYTES % (AUTO) 10.2 % (1.7-9.3); PLATELET COUNT (AUTO) 177 K/uL (140-450); RED BLOOD CELL COUNT(AUTO) 4.72 MIL/uL (4.20-6.10); RED CELL DISTRIBUTION WIDTH 12.5 % (11.6-13.7); WHITE BLOOD COUNT (AUTO) 10.6 K/uL (4.8-10.8)
[2023-11-24] MEDS: ACETAMINOPHEN 325 MG TAB PO PRN (08:00)
[2023-11-24 08:07] LABS: ALBUMIN 3.3 g/dL (3.4-5.0); ANION GAP 13.7 (8-16); CALCIUM 8.2 mg/dL (8.5-10.1); CARBON DIOXIDE 26.3 mmol/L (21-32); TOTAL BILIRUBIN 4.5 mg/dL (0.0-1.0); TOTAL PROTEIN, SERUM 6.8 g/dL (6.4-8.2)
[2023-11-24] MEDS: FOLIC ACID 1 MG TAB PO SCH (09:17)
[2023-11-24] MEDS: PANTOPRAZOLE 40 MG INJ VIAL IVP SCH (09:17)
[2023-11-24] MEDS: DOCUSATE SODIUM 100 MG GELCAP PO SCH (09:17)
[2023-11-24] MEDS: lisinopriL 20 MG TAB PO SCH (09:18)
[2023-11-24] MEDS: MULTIVITAMIN 1 TAB PO SCH (09:18)
[2023-11-24] MEDS: amLODIPine 5 MG TAB PO SCH (09:18)
[2023-11-24] MEDS: THIAMINE 100 MG TAB PO SCH (09:19)
[2023-11-24] MEDS ORDERED: DEXTROSE 50% 50 ML SYR IVP PRN (11:05)
[2023-11-24] MEDS ORDERED: INSULIN LISPRO SLIDING SCALE 100 UNITS/ML VIAL SUBQ PRN (11:05)
[2023-11-24] MEDS: BLOOD GLUCOSE MONITORING 1 DEV DEV FS SCH (11:19)
[2023-11-24] MEDS: INSULIN LISPRO SLIDING SCALE 100 UNITS/ML VIAL SUBQ PRN (11:20)
[2023-11-24] MEDS: chlordiazePOXIDE 25 MG CAP PO SCH (12:18)
[2023-11-24] MEDS: METOPROLOL 25 MG TAB PO SCH (12:19)
[2023-11-24] MEDS: POTASSIUM CHLORIDE 10 MEQ TABER PO SCH (12:19)
[2023-11-24] MEDS: ATORVASTATIN 20 MG TAB PO SCH (20:45)
[2023-11-24] MEDS: INSULIN LANTUS 100 UNITS/ML 10 ML VIAL SUBQ SCH (20:55)
[2023-11-25] VITALS (7 sets, daily range): BP systolic 96–120; BP diastolic 59–72; PULSE 75–96; RESP 18; TEMP 97.1–98.3; O2SAT 97–100
[2023-11-25 05:35] LABS: BASOPHILS % (AUTO) 0.3 % (0.0-2.0); EOSINOPHILS # (AUTO) 0.1 K/uL (0-0.4); EOSINOPHILS % (AUTO) 1.8 % (0.0-4.0); HEMATOCRIT 35.3 % (36-52); HEMOGLOBIN 12.5 g/dL (12.0-18.0); LYMPHOCYTES # (AUTO) 1.7 K/uL (2.0-11.5); MEAN CORPUSCULAR HEMOGLOBIN 31 pg (27-31); MEAN CORPUSCULAR HGB CONC 35 g/dL (33-37); MONOCYTES # (AUTO) 0.7 K/uL (0.8-1.0); NEUTROPHILS # (AUTO) 5.4 K/uL (1.8-7.7); NEUTROPHILS % (AUTO) 67.9 % (42.2-75.2); PLATELET COUNT (AUTO) 146 K/uL (140-450); RED BLOOD CELL COUNT(AUTO) 4.05 MIL/uL (4.20-6.10); RED CELL DISTRIBUTION WIDTH 12.5 % (11.6-13.7); WHITE BLOOD COUNT (AUTO) 7.9 K/uL (4.8-10.8)
[2023-11-25 06:17] LABS: MAGNESIUM 2.2 mg/dL (1.8-2.4); PHOSPHORUS 2.4 mg/dL (2.5-4.9)
[2023-11-25 06:18] LABS: ALBUMIN 2.7 g/dL (3.4-5.0); ANION GAP 10.6 (8-16); CALCIUM 7.8 mg/dL (8.5-10.1); CARBON DIOXIDE 27.4 mmol/L (21-32); CREATININE 1.5 mg/dL (0.6-1.3); TOTAL BILIRUBIN 1.1 mg/dL (0.0-1.0); TOTAL PROTEIN, SERUM 5.8 g/dL (6.4-8.2)
[2023-11-25] MEDS: POTASSIUM CHLORIDE 10 MEQ TABER PO SCH (08:59)
[2023-11-25] MEDS: LOPERAMIDE 2 MG CAP PO SCH (14:48)
[2023-11-25] MEDS: NACL 0.45% 1,000 ML IV SCH (14:49)
[2023-11-25] MEDS: LOPERAMIDE 2 MG CAP ONE (19:51)
[2023-11-25] MEDS: LOPERAMIDE 2 MG CAP PO PRN (19:54)
[2023-11-26 04:00] VITALS: BP 108/69; PULSE 90; RESP 18; TEMP 98; O2SAT 97
[2023-11-26 05:56] LABS: BASOPHILS % (AUTO) 0.3 % (0.0-2.0); EOSINOPHILS # (AUTO) 0.3 K/uL (0-0.4); EOSINOPHILS % (AUTO) 3.8 % (0.0-4.0); HEMATOCRIT 34.3 % (36-52); HEMOGLOBIN 12.2 g/dL (12.0-18.0); LYMPHOCYTES # (AUTO) 2.1 K/uL (2.0-11.5); LYMPHOCYTES % (AUTO) 26.4 % (20.5-51.1); MEAN CORPUSCULAR HEMOGLOBIN 31 pg (27-31); MEAN CORPUSCULAR HGB CONC 35 g/dL (33-37); MEAN CORPUSCULAR VOLUME 86.2 fL (80-94); MONOCYTES # (AUTO) 0.8 K/uL (0.8-1.0); MONOCYTES % (AUTO) 9.5 % (1.7-9.3); NEUTROPHILS # (AUTO) 4.8 K/uL (1.8-7.7); PLATELET COUNT (AUTO) 129 K/uL (140-450); RED BLOOD CELL COUNT(AUTO) 3.98 MIL/uL (4.20-6.10); RED CELL DISTRIBUTION WIDTH 12.8 % (11.6-13.7); WHITE BLOOD COUNT (AUTO) 8.1 K/uL (4.8-10.8)
[2023-11-26 06:27] LABS: MAGNESIUM 1.9 mg/dL (1.8-2.4); PHOSPHORUS 2.7 mg/dL (2.5-4.9)
[2023-11-26 08:00] VITALS: BP 139/67; PULSE 84; RESP 16; TEMP 98.1; O2SAT 96
[2023-11-26 08:12] LABS: ANION GAP 11.3 (8-16); CALCIUM 7.7 mg/dL (8.5-10.1); CARBON DIOXIDE 26.1 mmol/L (21-32); CREATININE 1.1 mg/dL (0.6-1.3); POTASSIUM 3.4 mmol/L (3.5-5.1)
[2023-11-26 08:18] LABS: ALBUMIN 2.8 g/dL (3.4-5.0); TOTAL BILIRUBIN 0.6 mg/dL (0.0-1.0); TOTAL PROTEIN, SERUM 5.8 g/dL (6.4-8.2)
[2023-11-26] MEDS: POTASSIUM CHLORIDE 10 MEQ TABER PO SCH (11:13)
== END 2023-11-26 12:45 | disposition home or self-care (01) | DRG 426 ==
LOC: MED 20:03 → MTU 22:40
PROVIDERS: ADMIT Student in an Organized Health Care Education/Training Program; ATTEND Student in an Organized Health Care Education/Training Program
DX: E87.1 Hypo-osmolality and hyponatremia (principal); N17.0 Acute kidney failure with tubular necrosis; E87.29 Other acidosis; R65.10 Systemic inflammatory response syndrome (SIRS) of non-infectious origin without acute organ dysfunction; A08.4 Viral intestinal infection, unspecified; F10.239 Alcohol dependence with withdrawal, unspecified; F10.229 Alcohol dependence with intoxication, unspecified; E11.9 Type 2 diabetes mellitus without complications; I10 Essential (primary) hypertension; E78.5 Hyperlipidemia, unspecified; Z79.4 Long term (current) use of insulin; Z79.899 Other long term (current) drug therapy
CPT/HCPCS: 36415; 71045; 76700; 76770; 80048; 80053; 80076; 80305; 81001; 82009; 82948; 83036; 83690; 83735; 84100; 84484; 85025; 87081; 93005; 96361; 96372; 96374; 99285; C9113; G0480; G0482; J1815; J2405; J3411; Q0092

== ENCOUNTER 2024-02-16 17:37 | Inpatient (IN) | payer MEDICAID ==
[~2024-02-16] VITALS: Ht 165.1 cm; Wt 81.6 kg
[~2024-02-16 17:37] MED LIST changes: +ATOR10TA PO; -B-CO1TAB3 PO; -DOCU-299 PO; +ERGO-30 PO; -FOLI1TAB90 PO; +INSU100S22 SUBQ; -LACT10SO11 PO
[2024-02-16 17:40] VITALS: BP 164/95; PULSE 111; RESP 18; TEMP 98.4; O2SAT 95
[2024-02-16] MEDS: LORazepam 2 MG/ML VIAL IVP ONE (19:13)
[2024-02-16 19:15] LABS: BASOPHILS % (AUTO) 0.3 % (0.0-2.0); EOSINOPHILS % (AUTO) 0.1 % (0.0-4.0); HEMATOCRIT 39.5 % (36-52); LYMPHOCYTES # (AUTO) 0.8 K/uL (2.0-11.5); LYMPHOCYTES % (AUTO) 12.5 % (20.5-51.1); MEAN CORPUSCULAR HEMOGLOBIN 30 pg (27-31); MEAN CORPUSCULAR HGB CONC 35 g/dL (33-37); MEAN CORPUSCULAR VOLUME 84.9 fL (80-94); MONOCYTES # (AUTO) 0.6 K/uL (0.8-1.0); MONOCYTES % (AUTO) 9.2 % (1.7-9.3); NEUTROPHILS # (AUTO) 4.9 K/uL (1.8-7.7); NEUTROPHILS % (AUTO) 77.9 % (42.2-75.2); PLATELET COUNT (AUTO) 166 K/uL (140-450); RED BLOOD CELL COUNT(AUTO) 4.66 MIL/uL (4.20-6.10); RED CELL DISTRIBUTION WIDTH 12.1 % (11.6-13.7); WHITE BLOOD COUNT (AUTO) 6.3 K/uL (4.8-10.8)
[2024-02-16] MEDS: NACL 0.9% 1,000 ML IV ONE ×3 (19:17→22:52)
[2024-02-16] MEDS: THIAMINE 200 MG/2 ML VIAL IV ONE (19:17)
[2024-02-16 19:31] LABS: ALBUMIN 3.6 g/dL (3.4-5.0); ANION GAP 23.8 (8-16); CALCIUM 8.4 mg/dL (8.5-10.1); CARBON DIOXIDE 19.4 mmol/L (21-32); CREATININE 1.2 mg/dL (0.6-1.3); POTASSIUM 3.2 mmol/L (3.5-5.1); TOTAL BILIRUBIN 0.6 mg/dL (0.0-1.0); TOTAL PROTEIN, SERUM 8.1 g/dL (6.4-8.2)
[2024-02-16 20:39] LABS: APPEARANCE,URINE CLEAR (CLEAR); BILIRUBIN,URINE NEGATIVE (NEGATIVE); BLOOD, URINE 2+ (NEGATIVE); COLOR,URINE YELLOW (YELLOW); LEUKOCYTE ESTERASE ,URINE NEGATIVE (NEGATIVE); NITRITE, URINE NEGATIVE (NEGATIVE); PROTEIN,URINE 2+ (NEGATIVE); UGLUCOSE 3+ (NEGATIVE); UROBILINOGEN,URINE 0.2 EU/dL (0.2 - 1)
[2024-02-16 20:50] LABS: AMPHETAMINE, URINE NEGATIVE ng/ml (NEG <=1000); BARBITURATE, URINE NEGATIVE ng/ml (NEG <=200); BENZODIAZEPINE, URINE NEGATIVE ng/mL (NEG <=200); CANNABINOID, URINE NEGATIVE ng/mL (NEG <=50); COCAINE, URINE NEGATIVE ng/mL (NEG <=300); OPIATE, URINE NEGATIVE ng/mL (NEG <=2000); PHENCYCLIDINE SCREEN,URINE NEGATIVE ng/mL (NEG <=25)
[2024-02-16 20:55] LABS: BACTERIA,URINE FEW /HPF (None Seen); SQUAMOUS EPITHELIAL CELL,UR 0-3 (FEW) /LPF (0-3 (FEW)); WBC,URINE 0-5 /HPF (0-5)
[2024-02-16 21:41] LABS: BLOOD GAS PCO2 29.8 mmHg (35-45); BLOOD GAS PH 7.415 (7.35-7.45)
[2024-02-16 21:42] LABS: BLOOD GAS BASE EXCESS -4.6 mmol/L (-2.0-2.0); BLOOD GAS HCO3 18.7 mmol/L (22-26); BLOOD GAS O2 SAT% 92.1 % (92.0-98.5)
[2024-02-16] MEDS ORDERED: LORazepam 1 MG TAB PO PRN (22:50)
[2024-02-16] MEDS ORDERED: ONDANSETRON 4 MG/2 ML VIAL IVP PRN (22:50)
[2024-02-16] MEDS ORDERED: ZOLPIDEM 5 MG TAB PO PRN (22:50)
[2024-02-16] MEDS: NACL 0.9% 1,000 ML IV SCH (22:50)
[2024-02-16] MEDS ORDERED: DEXTROSE 50% 50 ML SYR IVP PRN (22:50)
[2024-02-16] MEDS: KCL 20 MEQ IN 100 mL PREMIX 200 ML IV ONE (22:51)
[2024-02-16] MEDS ORDERED: INSULIN LANTUS 100 UNITS/ML 10 ML VIAL SUBQ SCH (23:10)
[2024-02-16] MEDS: LORazepam 1 MG TAB PO PRN (23:33)
[2024-02-17] MEDS: hydrALAZINE 20 MG/ML VIAL IVP PRN (00:04)
[2024-02-17] MEDS: LORazepam 1 MG TAB PO PRN (00:41)
[2024-02-17 07:08] LABS: BASOPHILS % (AUTO) 0.3 % (0.0-2.0); EOSINOPHILS % (AUTO) 0.1 % (0.0-4.0); HEMATOCRIT 36.9 % (36-52); HEMOGLOBIN 13.2 g/dL (12.0-18.0); LYMPHOCYTES # (AUTO) 0.9 K/uL (2.0-11.5); LYMPHOCYTES % (AUTO) 12.7 % (20.5-51.1); MEAN CORPUSCULAR HEMOGLOBIN 30 pg (27-31); MEAN CORPUSCULAR HGB CONC 36 g/dL (33-37); MEAN CORPUSCULAR VOLUME 84.2 fL (80-94); MONOCYTES # (AUTO) 0.7 K/uL (0.8-1.0); MONOCYTES % (AUTO) 9.9 % (1.7-9.3); NEUTROPHILS # (AUTO) 5.3 K/uL (1.8-7.7); PLATELET COUNT (AUTO) 133 K/uL (140-450); RED BLOOD CELL COUNT(AUTO) 4.38 MIL/uL (4.20-6.10); RED CELL DISTRIBUTION WIDTH 12.3 % (11.6-13.7); WHITE BLOOD COUNT (AUTO) 6.9 K/uL (4.8-10.8)
[2024-02-17] MEDS: BLOOD GLUCOSE MONITORING 1 DEV DEV FS SCH (07:35)
[2024-02-17 07:50] LABS: ALBUMIN 2.9 g/dL (3.4-5.0); ANION GAP 19.4 (8-16); CALCIUM 7.3 mg/dL (8.5-10.1); MAGNESIUM 1.8 mg/dL (1.8-2.4); POTASSIUM 3.4 mmol/L (3.5-5.1); TOTAL BILIRUBIN 0.9 mg/dL (0.0-1.0); TOTAL PROTEIN, SERUM 6.7 g/dL (6.4-8.2)
[2024-02-17] MEDS: INSULIN LISPRO SLIDING SCALE 100 UNITS/ML VIAL SUBQ PRN (08:06)
[2024-02-17] MEDS: PANTOPRAZOLE 40 MG INJ VIAL IVP SCH (09:48)
[2024-02-17] MEDS: THIAMINE 100 MG TAB PO SCH (09:48)
[2024-02-17] MEDS: amLODIPine 5 MG TAB PO SCH (09:49)
[2024-02-17] MEDS: chlordiazePOXIDE 25 MG CAP PO SCH (09:49)
[2024-02-17] MEDS: lisinopriL 20 MG TAB PO SCH (09:50)
[2024-02-17] MEDS: MULTIVITAMIN 1 TAB PO SCH (09:50)
[2024-02-17] MEDS: FOLIC ACID 1 MG TAB PO SCH (09:51)
[2024-02-17] MEDS: DOCUSATE SODIUM 100 MG GELCAP PO SCH (09:51)
[2024-02-17] MEDS: INSULIN LANTUS 100 UNITS/ML 10 ML VIAL SUBQ SCH (10:22)
[2024-02-17 13:00] VITALS: PULSE 106; RESP 18; O2SAT 98
[2024-02-17 13:30] VITALS: PULSE 98; RESP 16; O2SAT 97
[2024-02-17] MEDS: HYDROcodone/APAP 5/325 MG 1 TAB TAB PO PRN (14:11)
[2024-02-17 16:00] VITALS: BP 138/59; PULSE 107; RESP 18; TEMP 98.7; O2SAT 97
[2024-02-17 20:00] VITALS: BP 124/55; PULSE 111; PULSE 97; RESP 18; TEMP 99.1; O2SAT 97
[2024-02-17] MEDS: ATORVASTATIN 20 MG TAB PO SCH (20:46)
[2024-02-18] VITALS: BP 122/59; PULSE 87; RESP 18; TEMP 98.5; O2SAT 97
[2024-02-18 04:00] VITALS: BP 127/60; PULSE 90; RESP 18; TEMP 98; O2SAT 97
[2024-02-18 06:11] LABS: BASOPHILS % (AUTO) 0.4 % (0.0-2.0); EOSINOPHILS # (AUTO) 0.2 K/uL (0-0.4); EOSINOPHILS % (AUTO) 3.1 % (0.0-4.0); HEMATOCRIT 35.7 % (36-52); HEMOGLOBIN 12.6 g/dL (12.0-18.0); LYMPHOCYTES # (AUTO) 1.3 K/uL (2.0-11.5); LYMPHOCYTES % (AUTO) 20.8 % (20.5-51.1); MEAN CORPUSCULAR HEMOGLOBIN 30 pg (27-31); MEAN CORPUSCULAR HGB CONC 35 g/dL (33-37); MEAN CORPUSCULAR VOLUME 85.3 fL (80-94); MONOCYTES # (AUTO) 0.9 K/uL (0.8-1.0); MONOCYTES % (AUTO) 13.3 % (1.7-9.3); NEUTROPHILS % (AUTO) 62.4 % (42.2-75.2); PLATELET COUNT (AUTO) 131 K/uL (140-450); RED BLOOD CELL COUNT(AUTO) 4.18 MIL/uL (4.20-6.10); RED CELL DISTRIBUTION WIDTH 12.4 % (11.6-13.7); WHITE BLOOD COUNT (AUTO) 6.4 K/uL (4.8-10.8)
[2024-02-18 06:29] LABS: ALBUMIN 2.4 g/dL (3.4-5.0); ANION GAP 10.7 (8-16); CARBON DIOXIDE 27.9 mmol/L (21-32); MAGNESIUM 1.7 mg/dL (1.8-2.4); TOTAL BILIRUBIN 0.6 mg/dL (0.0-1.0); TOTAL PROTEIN, SERUM 5.8 g/dL (6.4-8.2)
[2024-02-18 06:35] LABS: POTASSIUM 2.6 mmol/L (3.5-5.1)
[2024-02-18] MEDS ORDERED: POTASSIUM CHLORIDE 80 MEQ, LIDOCAINE 1% 25 MG in NACL 0.9% 250 ML IV ONE (06:45)
[2024-02-18 08:00] VITALS: BP 131/58; PULSE 81; PULSE 97; RESP 18; RESP 20; TEMP 98; O2SAT 100; O2SAT 97
[2024-02-18] MEDS: POTASSIUM CHLORIDE 40 MEQ, LIDOCAINE 1% 25 MG in NACL 0.9% 250 ML IV SCH (08:38)
[2024-02-18] MEDS: MAGNESIUM OXIDE 400 MG TAB PO SCH (12:19)
[2024-02-18 16:14] LABS: ANION GAP 10.8 (8-16); CALCIUM 7.3 mg/dL (8.5-10.1); CARBON DIOXIDE 25.6 mmol/L (21-32); CREATININE 1.2 mg/dL (0.6-1.3); POTASSIUM 3.4 mmol/L (3.5-5.1)
[2024-02-18 16:27] VITALS: O2SAT 94
[2024-02-18 20:00] VITALS: BP 157/76; PULSE 105; RESP 18; TEMP 97.5; O2SAT 97; O2SAT 99
[2024-02-18] MEDS: POTASSIUM CHLORIDE 10 MEQ TABER PO ONE (20:45)
[2024-02-19 04:00] VITALS: BP_SYST 117; BP_SYST 127; BP_DIAS 58; BP_DIAS 60; PULSE 75; RESP 18; TEMP 97.5; O2SAT 97
[2024-02-19 05:31] LABS: BASOPHILS % (AUTO) 0.4 % (0.0-2.0); EOSINOPHILS # (AUTO) 0.4 K/uL (0-0.4); EOSINOPHILS % (AUTO) 6.6 % (0.0-4.0); HEMATOCRIT 36.7 % (36-52); HEMOGLOBIN 12.7 g/dL (12.0-18.0); LYMPHOCYTES # (AUTO) 1.7 K/uL (2.0-11.5); LYMPHOCYTES % (AUTO) 32.3 % (20.5-51.1); MEAN CORPUSCULAR HEMOGLOBIN 30 pg (27-31); MEAN CORPUSCULAR HGB CONC 35 g/dL (33-37); MEAN CORPUSCULAR VOLUME 85.8 fL (80-94); MONOCYTES # (AUTO) 0.7 K/uL (0.8-1.0); MONOCYTES % (AUTO) 13.9 % (1.7-9.3); NEUTROPHILS # (AUTO) 2.5 K/uL (1.8-7.7); NEUTROPHILS % (AUTO) 46.8 % (42.2-75.2); PLATELET COUNT (AUTO) 124 K/uL (140-450); RED BLOOD CELL COUNT(AUTO) 4.27 MIL/uL (4.20-6.10); RED CELL DISTRIBUTION WIDTH 12.3 % (11.6-13.7); WHITE BLOOD COUNT (AUTO) 5.4 K/uL (4.8-10.8)
[2024-02-19 06:13] LABS: ALBUMIN 2.3 g/dL (3.4-5.0); ANION GAP 9.8 (8-16); CALCIUM 7.3 mg/dL (8.5-10.1); CARBON DIOXIDE 27.1 mmol/L (21-32); CREATININE 1.1 mg/dL (0.6-1.3); MAGNESIUM 1.8 mg/dL (1.8-2.4); PHOSPHORUS 2.2 mg/dL (2.5-4.9); TOTAL BILIRUBIN 0.5 mg/dL (0.0-1.0); TOTAL PROTEIN, SERUM 5.8 g/dL (6.4-8.2)
[2024-02-19 06:19] LABS: POTASSIUM 2.9 mmol/L (3.5-5.1)
[2024-02-19] MEDS ORDERED: POTASSIUM CHLORIDE 80 MEQ, LIDOCAINE 1% 25 MG in NACL 0.9% 250 ML IV ONE (06:30)
[2024-02-19 08:00] VITALS: BP 142/72; PULSE 74; RESP 20; TEMP 97; O2SAT 98
[2024-02-19 15:08] VITALS: O2SAT 97
[2024-02-19 17:58] LABS: ANION GAP 12.7 (8-16); CALCIUM 7.7 mg/dL (8.5-10.1); CARBON DIOXIDE 26.5 mmol/L (21-32); POTASSIUM 4.2 mmol/L (3.5-5.1)
[2024-02-19 20:00] VITALS: BP 157/86; PULSE 99; RESP 18; TEMP 97.2; O2SAT 96
[2024-02-19 20:37] VITALS: BP 157/86; PULSE 99; RESP 18; TEMP 97.2
== END 2024-02-19 21:03 | disposition home or self-care (01) | DRG 426 ==
LOC: MED 17:37 → MTU 22:53
PROVIDERS: ADMIT Student in an Organized Health Care Education/Training Program; ATTEND Student in an Organized Health Care Education/Training Program
DX: E87.1 Hypo-osmolality and hyponatremia (principal); R65.10 Systemic inflammatory response syndrome (SIRS) of non-infectious origin without acute organ dysfunction; E44.0 Moderate protein-calorie malnutrition; E83.51 Hypocalcemia; E87.6 Hypokalemia; E86.0 Dehydration; E11.65 Type 2 diabetes mellitus with hyperglycemia; F10.229 Alcohol dependence with intoxication, unspecified; I10 Essential (primary) hypertension; E66.9 Obesity, unspecified; Z68.30 Body mass index [BMI] 30.0-30.9, adult; Z79.899 Other long term (current) drug therapy
CPT/HCPCS: 36415; 36600; 80048; 80053; 80305; 81001; 82803; 82948; 83690; 83735; 84100; 85025; 87081; 96361; 96365; 96366; 96375; 97110; 97116; 97530; 99291; C9113; G0482; J0360; J1815; J2001; J2060; J3411; J3480; J7030

== ENCOUNTER 2024-05-25 17:54 | Emergency (ER) | payer MEDICAID ==
[~2024-05-25] VITALS: Ht 165.1 cm; Wt 87.2 kg
[2024-05-25 18:29] VITALS: BP 161/84; PULSE 111; RESP 17; TEMP 98.3; O2SAT 95
[2024-05-25] MEDS: DIAZEPAM PFS 10 MG/2 ML SYR IVP ONE (20:13)
[2024-05-25] MEDS: NACL 0.9% 1,000 ML IV ONE (20:16)
[2024-05-25 20:23] LABS: BASOPHILS % (AUTO) 0.3 % (0.0-2.0); EOSINOPHILS # (AUTO) 0.1 K/uL (0-0.4); EOSINOPHILS % (AUTO) 0.8 % (0.0-4.0); HEMATOCRIT 42.5 % (36-52); HEMOGLOBIN 14.8 g/dL (12.0-18.0); LYMPHOCYTES # (AUTO) 2.9 K/uL (2.0-11.5); LYMPHOCYTES % (AUTO) 36.4 % (20.5-51.1); MEAN CORPUSCULAR HEMOGLOBIN 30 pg (27-31); MEAN CORPUSCULAR HGB CONC 35 g/dL (33-37); MEAN CORPUSCULAR VOLUME 86.1 fL (80-94); MONOCYTES # (AUTO) 0.7 K/uL (0.8-1.0); MONOCYTES % (AUTO) 9.1 % (1.7-9.3); NEUTROPHILS # (AUTO) 4.2 K/uL (1.8-7.7); NEUTROPHILS % (AUTO) 53.4 % (42.2-75.2); PLATELET COUNT (AUTO) 268 K/uL (140-450); RED BLOOD CELL COUNT(AUTO) 4.93 MIL/uL (4.20-6.10); WHITE BLOOD COUNT (AUTO) 7.9 K/uL (4.8-10.8)
[2024-05-25 20:38] LABS: ALBUMIN 3.8 g/dL (3.4-5.0); BILIRUBIN,DIRECT 0.2 mg/dL (0.0-0.3); TOTAL PROTEIN, SERUM 7.6 g/dL (6.4-8.2)
[2024-05-25 20:41] LABS: ANION GAP 19.3 (8-16); CALCIUM 8.9 mg/dL (8.5-10.1); CARBON DIOXIDE 20.3 mmol/L (21-32); CREATININE 1.5 mg/dL (0.6-1.3); POTASSIUM 3.6 mmol/L (3.5-5.1)
[2024-05-25] MEDS ORDERED: CHLO-757 PO (20:56)
[2024-05-25 21:15] VITALS: BP 149/87; PULSE 94; RESP 26; O2SAT 94
== END 2024-05-25 21:42 | disposition home or self-care (01) ==
LOC: MED 17:54
DX: F10.939 Alcohol use, unspecified with withdrawal, unspecified (principal); N17.9 Acute kidney failure, unspecified; R00.0 Tachycardia, unspecified; E11.9 Type 2 diabetes mellitus without complications; I10 Essential (primary) hypertension; Z79.899 Other long term (current) drug therapy; Z79.4 Long term (current) use of insulin; Y90.6 Blood alcohol level of 120-199 mg/100 ml
CPT/HCPCS: 36415; 80048; 80076; 83690; 85025; 93005; 96361; 96374; 99284; G0482; J3360; J7030